=== PATIENT | female | born 1965 | race Caucasian/White ===

== ENCOUNTER → 2016-09-03 | Outpatient (REF) | payer OTHER ==
[~2016-09-03] MED LIST: ASPI81CH32 PO; ESCI20TA PO; LAMO100T PO; LEVO100T5 PO; SERO50TA PO; TOPA50TA7 PO; [UNRECOGNIZED DRUG - REMARK]; magnesium OR
== END ==
LOC: M SFHCADAM 13:35
PROVIDERS: ATTEND Physician Assistant Medical
DX: E03.9 Hypothyroidism, unspecified (principal); E55.9 Vitamin D deficiency, unspecified; M54.2 Cervicalgia

== ENCOUNTER → 2016-10-14 | Outpatient (REF) | payer OTHER | LOC: M LAB REF 12:11 | PROVIDERS: ATTEND Physician Assistant | DX: J03.90 Acute tonsillitis, unspecified (principal) ==

== ENCOUNTER → 2016-10-16 | Outpatient (REF) | payer OTHER ==
[2016-10-16 19:52] LABS: MICROSCOPIC INDICATED? MAN YES (NO)
[2016-10-16 22:15] LABS: SQUAMOUS EPITHELIAL CELL URINE SMALL AMOUNT /hpf (SMALL AMT); WBC, URINE 0-1 /hpf (0-3)
[2016-10-16 22:16] LABS: BACTERIA, URINE NONE SEEN; HYALINE CAST, URINE NONE SEEN /lpf (0-1); MICROSCOPIC EXAM PERFORMED
== END ==
LOC: M SFHCADAM 16:57
PROVIDERS: ATTEND Physician Assistant Medical
DX: R31.9 Hematuria, unspecified (principal); M54.5 Low back pain

== ENCOUNTER → 2016-10-22 | Outpatient (REF) | payer OTHER ==
[~2016-10-22] MED LIST changes: +BRIN1TAB2 PO; +MAGN200T PO
== END ==
LOC: M SMT 09:59
PROVIDERS: ATTEND Nurse Practitioner Women's Health
DX: R31.29 Other microscopic hematuria (principal)

== ENCOUNTER → 2016-10-27 | Outpatient (CLI) | payer OTHER ==
--- NOTE | 2016-10-27 10:29 | REP ---
Clinical: Abdominal pain. Technique: Real time balderas scale ultrasound examination using curved array transducer. Findings: Liver and pancreas are normal in contour, size, echogenicity without focal hepatic or pancreatic lesions identified. Gallbladder demonstrates cholelithiasis without wall thickening or pericholecystic fluid. No biliary ductal dilatation is appreciated and the common bile duct measures 6.7 mm diameter. The right kidney is normal in reniform shape without hydronephrosis and measures 10.7 x 5.3 x 4.0 cm. Visualized abdominal aorta is normal. No ascites. Impression: Cholelithiasis. No biliary ductal dilatation. Signed by hCuy Parry MD 10/27/2016 10:20 A
== END ==
LOC: M RAD 09:40
PROVIDERS: ATTEND Physician Assistant Medical
DX: K80.20 Calculus of gallbladder without cholecystitis without obstruction (principal)

== ENCOUNTER → 2016-10-29 | Outpatient (CLI) | payer OTHER ==
[~2016-10-29] MED LIST changes: +ISOVUE-370 76% 100ML VIAL (Q9967) As Ordered ONE
--- NOTE | 2016-10-29 16:35 | REP ---
Clinical: Hematuria. Technique: Axial precontrast, contrast enhanced, and delayed images of the abdomen and pelvis using 100 ml Isovue 370 intravenous contrast material coronal and sagittal re-formations. Findings: The bilateral kidneys/ureters and bladder appear normal in all phases of enhancement. Incidental note is made of few bilateral sub centimeter cysts. No nephrolithiasis, hydroureternephrosis, or mass lesion. Liver, spleen, pancreas, and bilateral adrenal glands are normal. Cholelithiasis noted. The enteric system is without obstruction or acute inflammatory process. Pelvis demonstrates normal bladder and evidence for prior hysterectomy. No pelvic fluid/ascites. No free air. No adenopathy. Vascular structures are without aneurysm or dissection. Musculoskeletal structures intact. Lung bases clear. Impression: 1. Urinary tract system is essentially unremarkable with only few bilateral subcentimeter cysts. 2. Cholelithiasis. 3. No further acute intra-abdominal or pelvic pathology appreciated. Signed by Chuy Parry MD 10/29/2016 04:26 P
== END ==
LOC: M RAD 15:20
PROVIDERS: ATTEND Nurse Practitioner Women's Health
DX: R31.9 Hematuria, unspecified (principal); K80.20 Calculus of gallbladder without cholecystitis without obstruction; N28.1 Cyst of kidney, acquired
CPT/HCPCS: 74178; Q9967

== ENCOUNTER → 2016-10-30 | Outpatient (CLI) | payer OTHER ==
[~2016-10-30] VITALS: Ht 157.5 cm; Wt 59.0 kg
[~2016-10-30] MED LIST changes: +GLYCOPYRROLATE INJ 0.2 MG/ML 2 ML VIAL As Ordered ONE; -ISOVUE-370 76% 100ML VIAL (Q9967) As Ordered ONE; +LIDOCAINE 2% INJ 100 MG/5 ML SDV (FOR ANES.) As Ordered ONE; +MIDAZOLAM INJ 2 MG/2 ML VIAL (J2250) As Ordered ONE; +NS 1,000 ML IV SCH; +ONDANSETRON 4MG/2ML VIAL (J2405) IV ONE; +PROPOFOL 200 MG/20 ML VIAL As Ordered ONE
--- NOTE | 2016-10-30 12:42 | ROOR ---
Patient Name: Klarissa Putnam Procedure Date: 10/30/2016 12:33 PM Date of : 1965 Age: 51 Room: [facility] Gender: Female Note Status: Finalized Procedure: Upper GI endoscopy Indications: Functional Dyspepsia, Heartburn Providers: Rudy CHURCH MD Referring MD: KELLY Gómez Requesting Provider: Medicines: Monitored Anesthesia Care Complications: No immediate complications. Procedure: Pre-Anesthesia Assessment: - The heart rate, respiratory rate, oxygen saturations, blood pressure, adequacy of pulmonary ventilation, and response to care were monitored throughout the procedure. The Endoscope was introduced through the mouth, and advanced to the second part of duodenum. The upper GI endoscopy was accomplished without difficulty. The patient tolerated the procedure well. Findings: Small Hiatal Hernia. The esophagus was normal. The stomach was normal. The examined duodenum was normal. Impression: - Small Hiatal Hernia. - Normal esophagus. - Normal stomach. - Normal examined duodenum. - No specimens collected. Recommendation: - Continue present medications. Rudy Church MD Rudy CHURCH MD 10/30/2016 12:42:20 PM This report has been signed electronically. Number of Addenda: 0 Note Initiated On: 10/30/2016 12:33 PM Estimated Blood Loss: Estimated blood loss: none.
--- NOTE | 2016-10-30 13:04 | ROOR ---
Patient Name: Klarissa Putnam Procedure Date: 10/30/2016 12:34 PM Date of : 1965 Age: 51 Room: [facility] Gender: Female Note Status: Finalized Procedure: Colonoscopy Indications: Change in bowel habits, Constipation Providers: Rudy CHURCH MD Referring MD: KELLY Gómez Requesting Provider: Medicines: Monitored Anesthesia Care Complications: No immediate complications. Procedure: Pre-Anesthesia Assessment: - The heart rate, respiratory rate, oxygen saturations, blood pressure, adequacy of pulmonary ventilation, and response to care were monitored throughout the procedure. The Colonoscope was introduced through the anus and advanced to the cecum, identified by appendiceal orifice and ileocecal valve. The colonoscopy was performed without difficulty. The patient tolerated the procedure well. The quality of the bowel preparation was poor. The bowel preparation used was Miralax and magnesium citrate. (Double Prep) Findings: (Colon Prep was Sub Optimal, Inadequate Visualisation) A 4 mm polyp was found in the cecum. The polyp was sessile. The polyp was removed with a cold snare. Resection and retrieval were complete. The exam was otherwise without abnormality on direct and retroflexion views. Impression: - Preparation of the colon was suboptimal/Inadequate. - One 4 mm polyp in the cecum, removed with a cold snare. Resected and retrieved. - The examination was otherwise without major lesions, polyps or obstruction on direct and retroflexion views. Recommendation: - Repeat colonoscopy in 1 year because the bowel preparation was suboptimal. - Miralax 1 capful (17 grams) in 8 ounces of water PO BID. Rudy Church MD Rudy CHURCH MD 10/30/2016 1:03:44 PM This report has been signed electronically. Number of Addenda: 0 Note Initiated On: 10/30/2016 12:34 PM Estimated Blood Loss: Estimated blood loss: none.
[2016-10-30 13:26] VITALS: BP 108/58
== END ==
LOC: M OPP 10:29
PROVIDERS: ATTEND Internal Medicine Gastroenterology
DX: R19.4 Change in bowel habit (principal); D12.0 Benign neoplasm of cecum; K30 Functional dyspepsia; K44.9 Diaphragmatic hernia without obstruction or gangrene; E03.9 Hypothyroidism, unspecified; K82.9 Disease of gallbladder, unspecified; F32.9 Major depressive disorder, single episode, unspecified; M54.9 Dorsalgia, unspecified; Z87.42 Personal history of other diseases of the female genital tract; Z87.891 Personal history of nicotine dependence; Z79.899 Other long term (current) drug therapy; Z80.3 Family history of malignant neoplasm of breast
CPT/HCPCS: 43235; 45385; 88305; 99156; 99157; J2250; J2405

== ENCOUNTER → 2016-12-07 | Outpatient (CLI) | payer OTHER ==
[~2016-12-07] MED LIST changes: -GLYCOPYRROLATE INJ 0.2 MG/ML 2 ML VIAL As Ordered ONE; -LIDOCAINE 2% INJ 100 MG/5 ML SDV (FOR ANES.) As Ordered ONE; -MIDAZOLAM INJ 2 MG/2 ML VIAL (J2250) As Ordered ONE; -NS 1,000 ML IV SCH; -ONDANSETRON 4MG/2ML VIAL (J2405) IV ONE; -PROPOFOL 200 MG/20 ML VIAL As Ordered ONE
--- NOTE | 2016-12-07 22:56 | ECGEPIP ---
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 NO SIGNIFICANT CHANGES Electronically Signed On 12-07-2016 22:56:41 EDT by Luis Mitchell
== END ==
LOC: M EKG 11:08
PROVIDERS: ATTEND Internal Medicine
DX: Z01.818 Encounter for other preprocedural examination (principal); E04.1 Nontoxic single thyroid nodule

== ENCOUNTER → 2016-12-08 | Day surgery (SDC) | payer OTHER ==
[~2016-12-08] VITALS: Ht 160 cm; Wt 59.4 kg
[~2016-12-08] MED LIST changes: +BUPIVACAINE/EPIN 0.25% 30 ML VIAL As Ordered ONE; +GLYCOPYRROLATE INJ 0.2 MG/ML 2 ML VIAL As Ordered ONE; +KETOROLAC 60 MG/2 ML VIAL (J1885) As Ordered ONE; +LIDOCAINE 2% INJ 100 MG/5 ML SDV (FOR ANES.) As Ordered ONE; +LR 1,000 ML IV SCH; +METOCLOPRAMIDE INJ 10MG/2ML VIAL (J2765) IV PRN; +MIDAZOLAM INJ 2 MG/2 ML VIAL (J2250) As Ordered ONE; +NEOSTIGMINE 1MG/ML 5 ML SYRINGE (J2710) As Ordered ONE; +ONDANSETRON 4MG/2ML VIAL (J2405) As Ordered ONE; +ONDANSETRON 4MG/2ML VIAL (J2405) IV PRN; +PERCOCET 5MG/325MG TAB As Ordered ONE; +PROPOFOL 200 MG/20 ML VIAL As Ordered ONE; +ROCURONIUM BROMIDE 50 MG/5 ML VIAL As Ordered ONE; +dexameTHASONE 4 MG/ML 1ML VIAL (J1100) As Ordered ONE; +ePHEDrine SULFATE 25 MG/5 ML(5MG/ML) SYRINGE As Ordered ONE; +fentaNYL 100 MCG/2 ML INJECTION (J3010) IV PRN; +fentaNYL 250 MCG/5 ML INJECTION (J3010) As Ordered ONE
[2016-12-08] MEDS: PERCOCET 5MG/325MG TAB PO PRN ×2 (10:35→11:10)
--- NOTE | 2016-12-08 10:39 | RO ---
DATE OF PROCEDURE: 12/08/2016 PREOPERATIVE DIAGNOSES: 1. Symptomatic gallstones. 2. Left upper quadrant pain. POSTOPERATIVE DIAGNOSES: 1. Symptomatic gallstones. 2. Left upper quadrant adhesions. PROCEDURE: 1. Laparoscopic cholecystectomy. 2. Laparoscopic lysis of adhesions. 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 ESTIMATED BLOOD LOSS (EBL): Minimal. FLUIDS: Crystalloid. DESCRIPTION OF PROCEDURE: Brief procedure summary: The patient was brought to the operating room and was given general anesthesia. After adequate anesthesia was established, the patient was prepped and draped in the usual sterile fashion. Next, an infraumbilical incision was made with skin knife. Blunt dissection was carried down to fascia. Fascia was grasped Keyanna clamps, elevated, and a Veress needle placed into the abdominal cavity, insufflated to 15 mm of pressure. A dilating 10 mm trocar was placed at that time, and the epigastric area was evaluated, and the epigastric and two lateral trocars were placed under direct visualization. The gallbladder was grasped, retracted superiorly, and the neck of the gallbladder was cleared of peritoneum and some fatty tissue down to the level of the cystic duct on the lateral aspect; and then anteriorly and medially, the peritoneum was taken down. The cystic artery was well visualized. It was followed up to the gallbladder wall and onto the gallbladder wall for some distance. Once this was identified, a window behind the neck of the gallbladder was created, and dissection continued all the way up to the cystic plate; and once the cystic plate was identified and a critical view of safety was obtained and the cystic duct was clipped at the cystic duct/gallbladder neck junction and the cystic artery was clipped, both were transected, and the gallbladder was removed from removed from the gallbladder bed using electrocautery. This was placed in an EndoCatch bag, brought out through the umbilicus. The abdomen was reinsufflated at this time, and the right upper quadrant was copiously irrigated until clear. There was some minimal scarring in the liver edges itself but no significant cirrhosis appreciated. No adhesions on the liver. The left lobe of the liver was somewhat enlarged, but no evidence of cirrhotic changes were appreciated. Then, the patient was placed in the right-side down, given that she had some left upper quadrant, left lateral abdominal wall pain. Initially, with the patient in the supine position, I did not see any significant adhesions but, however, tilting her to the right, I was able to see some adhesions of the omentum up against the sidewall. There was no mass effect, no lesion that I could appreciate; however, there were multiple adhesions that I took down with electrocautery and some blunt dissection all the way to the level of the white line of Toldt laterally. The spleen was visualized and did not reveal any significant adhesions in this area. Once these adhesions were taken down, all trocars were removed under direct visualization. 0 Vicryl was used to close the fascia at the umbilicus, and all incisions were closed with 4-0 Vicryl. Steri-Strips and a dry sterile dressing was applied. The patient was awakened from her anesthesia, extubated, brought to recovery room awake, alert, and hemodynamically stable. Sponge and needle counts correct times two.
[2016-12-08] MEDS: MIDAZOLAM INJ 2 MG/2 ML VIAL (J2250) IV SCH ×2 (10:45→11:00)
[2016-12-08 12:05] VITALS: BP 116/53
== END | disposition home or self-care (01) ==
LOC: M SDC 07:42
PROVIDERS: ATTEND Surgery
DX: K80.18 Calculus of gallbladder with other cholecystitis without obstruction (principal); N73.6 Female pelvic peritoneal adhesions (postinfective); E03.9 Hypothyroidism, unspecified; D64.9 Anemia, unspecified; F41.9 Anxiety disorder, unspecified; F32.9 Major depressive disorder, single episode, unspecified; F17.210 Nicotine dependence, cigarettes, uncomplicated; Z79.899 Other long term (current) drug therapy
CPT/HCPCS: 47562; 88304; J1100; J1885; J2250; J2405; J2710; J3010

== ENCOUNTER 2016-12-23 14:13 | Emergency (ER) | payer OTHER ==
[~2016-12-23] VITALS: Ht 157.5 cm; Wt 60.8 kg
[~2016-12-23 14:13] MED LIST changes: -BUPIVACAINE/EPIN 0.25% 30 ML VIAL As Ordered ONE; -GLYCOPYRROLATE INJ 0.2 MG/ML 2 ML VIAL As Ordered ONE; -KETOROLAC 60 MG/2 ML VIAL (J1885) As Ordered ONE; -LIDOCAINE 2% INJ 100 MG/5 ML SDV (FOR ANES.) As Ordered ONE; -LR 1,000 ML IV SCH; -METOCLOPRAMIDE INJ 10MG/2ML VIAL (J2765) IV PRN; -MIDAZOLAM INJ 2 MG/2 ML VIAL (J2250) As Ordered ONE; -NEOSTIGMINE 1MG/ML 5 ML SYRINGE (J2710) As Ordered ONE; -ONDANSETRON 4MG/2ML VIAL (J2405) As Ordered ONE; -ONDANSETRON 4MG/2ML VIAL (J2405) IV PRN; -PERCOCET 5MG/325MG TAB As Ordered ONE; -PROPOFOL 200 MG/20 ML VIAL As Ordered ONE; -ROCURONIUM BROMIDE 50 MG/5 ML VIAL As Ordered ONE; -dexameTHASONE 4 MG/ML 1ML VIAL (J1100) As Ordered ONE; -ePHEDrine SULFATE 25 MG/5 ML(5MG/ML) SYRINGE As Ordered ONE; -fentaNYL 100 MCG/2 ML INJECTION (J3010) IV PRN; -fentaNYL 250 MCG/5 ML INJECTION (J3010) As Ordered ONE
[2016-12-23 14:14] VITALS: BP 142/95
[2016-12-23] MEDS ORDERED: KETOROLAC 60 MG/2 ML VIAL (J1885) IM ONE (15:00)
--- NOTE | 2016-12-23 15:25 | REP ---
Clinical: Trauma with pain to the second - fourth digits. Technique: AP, lateral, bilateral oblique views of the left hand. Comparison: 05/12/2014. Findings: Congenital shortening and degenerative changes involving the fifth metacarpal bone are again identified. Mild arthritic changes to the interphalangeal joints include subchondral sclerosis and joint space narrowing. Remainder of the examination appears relatively normal / stable. No acute fracture or dislocation identified. No subcutaneous emphysema or radiodense foreign body. Impression: Stable chronic findings and degenerative changes. No acute fracture dislocation. Signed by Chuy Parry MD 12/23/2016 03:16 P
[2016-12-23] MEDS ORDERED: NORC1TAB4 PO (15:31)
== END 2016-12-23 15:45 | disposition home or self-care (01) ==
LOC: M ED 14:52
DX: S60.022A Contusion of left index finger without damage to nail, initial encounter (principal); S60.032A Contusion of left middle finger without damage to nail, initial encounter; S60.042A Contusion of left ring finger without damage to nail, initial encounter; W23.0XXA Caught, crushed, jammed, or pinched between moving objects, initial encounter; Y92.019 Unspecified place in single-family (private) house as the place of occurrence of the external cause; Y93.E9 Activity, other interior property and clothing maintenance; Y99.9 Unspecified external cause status; F41.9 Anxiety disorder, unspecified; F32.9 Major depressive disorder, single episode, unspecified; F17.200 Nicotine dependence, unspecified, uncomplicated; Z79.899 Other long term (current) drug therapy

== ENCOUNTER → 2016-12-31 | Outpatient (CLI) | payer OTHER ==
[~2016-12-31] MED LIST changes: +NORC1TAB4 PO
--- NOTE | 2016-12-31 12:06 | REP ---
Clinical: Acute left-sided pain. Technique: AP, lateral, bilateral oblique and coned-down views of the lumbosacral spine. Findings: Alignment and lordosis maintained. Chronic spondylolysis at the L5-S1 level with hypertrophic facet changes and mild disc space narrowing is suspected and may warrant correlation. There is no evidence for acute fracture / compression injury or subluxation and the remainder of the lumbosacral spine appears normal. Impression: Chronic spondylolysis at the L5-S1 level suggested. Signed by Chuy Parry MD 12/31/2016 11:57 A
== END ==
LOC: M ADAMS 11:30
PROVIDERS: ATTEND Physician Assistant Medical
DX: M54.5 Low back pain (principal)

== ENCOUNTER → 2016-12-31 | Outpatient (REF) | payer OTHER ==
[2016-12-31 21:14] LABS: BASO % 0.6 % (0.0-1.0); EOS # 0.3 K/mm3 (0.0-0.50); EOS % 4.5 % (0.0-3.0); LARGE UNSTAINED CELL # 0.1 K/mm3 (0.0-0.4); LARGE UNSTAINED CELL % 1.3 % (0.0-4.0); LYMPH # 1.6 K/mm3 (1.5-4.5); MEAN CORPUSCULAR HEMOGLOBIN 31.8 pg (27.0-33.0); MEAN CORPUSCULAR HGB CONC 34.7 g/dl (32.0-36.5); MEAN CORPUSCULAR VOLUME 91.7 fl (80.0-96.0); MONO # 0.3 K/mm3 (0.0-0.8); MONO % 4.6 % (0.0-5.0); NEUTROPHILS # 4.7 K/mm3 (1.8-7.7); PLATELET COUNT, AUTOMATED 221 k/mm3 (150-450); RED CELL DISTRIBUTION WIDTH 12.4 % (11.5-14.5)
[2016-12-31 21:37] LABS: ALBUMIN 4.1 GM/DL (3.2-5.2); ALBUMIN/GLOBULIN RATIO 1.28 (1.00-1.93); ALKALINE PHOSPHATASE 68 U/L (45-117); ALT/SGPT 19 U/L (12-78); ANION GAP 7 MEQ/L (8-16); AST/SGOT 11 U/L (15-37); BILIRUBIN,TOTAL 0.5 MG/DL (0.2-1.0); BLOOD UREA NITROGEN 27 MG/DL (7-18); CALCIUM LEVEL 9.8 MG/DL (8.5-10.1); CARBON DIOXIDE LEVEL 28 MEQ/L (21-32); CHLORIDE LEVEL 108 MEQ/L (98-107); CREATININE FOR GFR 0.89 MG/DL (0.55-1.02); GLOMERULAR FILTRATION RATE > 60.0 (>51); GLUCOSE, FASTING 77 MG/DL (70-105); POTASSIUM SERUM 4.2 MEQ/L (3.5-5.1); SODIUM LEVEL 143 MEQ/L (136-145); TOTAL PROTEIN 7.3 GM/DL (6.4-8.2)
== END ==
LOC: M SFHCADAM 11:24
PROVIDERS: ATTEND Physician Assistant Medical
DX: R10.12 Left upper quadrant pain (principal); M54.5 Low back pain

== ENCOUNTER → 2016-12-31 | Outpatient (REF) | payer OTHER ==
[2017-01-01 10:38] LABS: ALKALINE PHOSPHATASE 70 U/L (45-117); ALT/SGPT 19 U/L (12-78); ANION GAP 8 MEQ/L (8-16); AST/SGOT 11 U/L (15-37); BLOOD UREA NITROGEN 26 MG/DL (7-18); CALCIUM LEVEL 9.7 MG/DL (8.5-10.1); CARBON DIOXIDE LEVEL 26 MEQ/L (21-32); CHLORIDE LEVEL 109 MEQ/L (98-107); GLOMERULAR FILTRATION RATE > 60.0 (>51); GLUCOSE, FASTING 79 MG/DL (70-105); POTASSIUM SERUM 4.2 MEQ/L (3.5-5.1); SODIUM LEVEL 143 MEQ/L (136-145)
[2017-01-01 10:39] LABS: ALBUMIN/GLOBULIN RATIO 1.25 (1.00-1.93); BILIRUBIN,TOTAL 0.6 MG/DL (0.2-1.0); THYROXINE (T4) 10.7 UG/DL (4.5-12.0); TOTAL PROTEIN 7.2 GM/DL (6.4-8.2)
[2017-01-01 10:44] LABS: MEAN CORPUSCULAR HEMOGLOBIN 31.5 pg (27.0-33.0); MEAN CORPUSCULAR HGB CONC 34.2 g/dl (32.0-36.5); RED CELL DISTRIBUTION WIDTH 12.6 % (11.5-14.5)
== END ==
LOC: M LABDRWAD 10:19
PROVIDERS: ATTEND Nurse Practitioner Psychiatric/Mental Health
DX: F32.9 Major depressive disorder, single episode, unspecified (principal)

== ENCOUNTER → 2017-03-15 | Outpatient (CLI) | payer OTHER ==
[~2017-03-15] MED LIST changes: +MAGN1TAB25 PO; +TIZA2TA; -TOPA50TA7 PO; +TOPA50TA8 PO; +VITA1CAP40
--- NOTE | 2017-03-15 17:04 | REP ---
Right foot four views: There is osteoarthritis of the great toe MTP articulation. There is question of a fracture at the base of the great toe proximal phalange. No other fracture is identified. Mineralization joint spaces are otherwise unremarkable. Impression: Question fracture at the base of the great toe proximal phalange. Great toe MTP osteoarthritis. Signed by Franklin Redd MD 03/15/2017 04:56 P
== END ==
LOC: M ADAMS 16:34
PROVIDERS: ATTEND Physician Assistant Medical
DX: M79.671 Pain in right foot (principal)

== ENCOUNTER → 2017-03-19 | Outpatient (REF) | payer OTHER | LOC: M LAB REF 12:26 | PROVIDERS: ATTEND Ophthalmology | DX: D23.12 Other benign neoplasm of skin of left eyelid, including canthus (principal) ==

== ENCOUNTER → 2017-03-23 | Outpatient (CLI) | payer OTHER ==
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
== END ==
LOC: M PAIN 15:30
PROVIDERS: ATTEND Anesthesiology
DX: G89.29 Other chronic pain (principal); M79.2 Neuralgia and neuritis, unspecified; R07.81 Pleurodynia; M79.1 Myalgia; F33.1 Major depressive disorder, recurrent, moderate; E03.9 Hypothyroidism, unspecified; F17.210 Nicotine dependence, cigarettes, uncomplicated; E55.9 Vitamin D deficiency, unspecified; Z79.1 Long term (current) use of non-steroidal anti-inflammatories (NSAID); Z79.899 Other long term (current) drug therapy

== ENCOUNTER → 2017-04-22 | Outpatient (CLI) | payer OTHER ==
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
== END ==
LOC: M PAIN 11:30
PROVIDERS: ATTEND Nurse Practitioner Family
DX: G89.29 Other chronic pain (principal); M79.2 Neuralgia and neuritis, unspecified; M79.1 Myalgia; M54.5 Low back pain; F31.9 Bipolar disorder, unspecified; E03.9 Hypothyroidism, unspecified; F17.210 Nicotine dependence, cigarettes, uncomplicated; E55.9 Vitamin D deficiency, unspecified; M13.0 Polyarthritis, unspecified; Z79.1 Long term (current) use of non-steroidal anti-inflammatories (NSAID); Z79.899 Other long term (current) drug therapy

== ENCOUNTER → 2017-04-23 | Outpatient (REF) | payer OTHER ==
[2017-04-23 13:42] LABS: FREE T4 1.2 NG/DL (0.76-1.46)
== END ==
LOC: M SFHCADAM 09:52
PROVIDERS: ATTEND Physician Assistant Medical
DX: E03.9 Hypothyroidism, unspecified (principal)

== ENCOUNTER 2017-04-26 17:05 | Emergency (ER) | payer OTHER ==
[~2017-04-26] VITALS: Ht 160 cm; Wt 61.8 kg
[~2017-04-26 17:05] MED LIST changes: -MAGN1TAB25 PO; -TIZA2TA; -VITA1CAP40
[2017-04-26] MEDS ORDERED: TIZA2TA (17:23)
[2017-04-26] MEDS ORDERED: MAGN1TAB25 PO (17:23)
[2017-04-26] MEDS ORDERED: VITA1CAP40 (17:23)
--- NOTE | 2017-04-26 19:12 | REP ---
Portable chest x-ray: Single upright view. History: Chest pain. Comparison chest x-ray: October 17, 2016. Findings: EKG monitoring electrodes overlie the chest. The lungs are well inflated and clear. Heart is not enlarged. Pulmonary vasculature is not increased. Pleural angles are sharp. Impression: No active disease. Signed by Brijesh Lee MD 04/26/2017 08:03 P
[2017-04-26 20:04] LABS: BASO % 0.6 % (0.0-1.0); EOS # 0.2 K/mm3 (0.0-0.50); EOS % 2.3 % (0.0-3.0); LARGE UNSTAINED CELL # 0.1 K/mm3 (0.0-0.4); LARGE UNSTAINED CELL % 1.8 % (0.0-4.0); LYMPH # 1.8 K/mm3 (1.5-4.5); LYMPH % 26.4 % (24.0-44.0); MEAN CORPUSCULAR HEMOGLOBIN 32.6 pg (27.0-33.0); MEAN CORPUSCULAR HGB CONC 36.5 g/dl (32.0-36.5); MEAN CORPUSCULAR VOLUME 89.4 fl (80.0-96.0); MONO # 0.4 K/mm3 (0.0-0.8); MONO % 5.5 % (0.0-5.0); NEUTROPHILS # 4.3 K/mm3 (1.8-7.7); NEUTROPHILS % 63.4 % (36.0-66.0); PLATELET COUNT, AUTOMATED 185 k/mm3 (150-450); RED CELL DISTRIBUTION WIDTH 12.3 % (11.5-14.5); WHITE BLOOD COUNT 6.8 K/mm3 (4.0-10.0)
[2017-04-26 20:09] LABS: INR 0.94
--- NOTE | 2017-04-26 20:09 | ECGEPIP ---
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
[2017-04-26 20:27] LABS: ALBUMIN 3.6 GM/DL (3.2-5.2); ALBUMIN/GLOBULIN RATIO 1.13 (1.00-1.93); ALT/SGPT 21 U/L (12-78); ANION GAP 6 MEQ/L (8-16); AST/SGOT 22 U/L (15-37); BILIRUBIN,DIRECT 0.1 MG/DL (0.0-0.2); BILIRUBIN,TOTAL 0.5 MG/DL (0.2-1.0); BLOOD UREA NITROGEN 18 MG/DL (7-18); CALCIUM LEVEL 9.1 MG/DL (8.5-10.1); CARBON DIOXIDE LEVEL 25 MEQ/L (21-32); CHLORIDE LEVEL 110 MEQ/L (98-107); CREATININE FOR GFR 0.87 MG/DL (0.55-1.02); FREE T4 1.11 NG/DL (0.76-1.46); GLOMERULAR FILTRATION RATE > 60.0 (>51); GLUCOSE, FASTING 88 MG/DL (70-105); POTASSIUM SERUM 3.6 MEQ/L (3.5-5.1); SODIUM LEVEL 141 MEQ/L (136-145); TOTAL PROTEIN 6.8 GM/DL (6.4-8.2)
[2017-04-26 20:32] LABS: ALKALINE PHOSPHATASE 65 U/L (45-117)
[2017-04-26 21:03] LABS: ABG BASE EXCESS -2.6 (-2.0-2.0); ABG HCO3 20.8 MEQ/L (22.0-26.0); ABG PARTIAL PRESSURE CO2 32.3 mmHg (35.0-45.0); ABG PARTIAL PRESSURE O2 96.2 mmHg (75.0-100.0); ABG STANDARD HCO3 22.3 MEQ/L (22.0-26.0); ABG TOTAL CO2 21.8 MEQ/L (22.0-29.0); ABG pH (ARTERIAL) 7.427 UNITS (7.350-7.450)
[2017-04-26 22:43] VITALS: BP 124/67
== END 2017-04-26 22:47 | disposition home or self-care (01) ==
LOC: M ED 17:05
DX: R06.4 Hyperventilation (principal); F41.9 Anxiety disorder, unspecified; Z72.0 Tobacco use

== ENCOUNTER → 2017-04-28 | Outpatient (REF) | payer OTHER ==
[~2017-04-28] MED LIST changes: +MAGN1TAB25 PO; +TIZA2TA; +VITA1CAP40
[2017-04-28 20:28] LABS: VITAMIN B12 LEVEL 443 PG/ML
[2017-04-28 20:29] LABS: FOLATE 7.6 NG/ML
[2017-04-28 20:39] LABS: MAGNESIUM LEVEL 2.2 MG/DL (1.8-2.4)
== END ==
LOC: M SFHCADAM 12:13
PROVIDERS: ATTEND Physician Assistant
DX: G62.9 Polyneuropathy, unspecified (principal); M79.1 Myalgia; M25.40 Effusion, unspecified joint

== ENCOUNTER → 2017-05-04 | Outpatient (CLI) | payer OTHER ==
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
== END ==
LOC: M PAIN 14:15
PROVIDERS: ATTEND Nurse Practitioner Family
DX: G89.29 Other chronic pain (principal); M79.2 Neuralgia and neuritis, unspecified; M79.1 Myalgia; M54.5 Low back pain; F33.1 Major depressive disorder, recurrent, moderate; E03.9 Hypothyroidism, unspecified; F17.210 Nicotine dependence, cigarettes, uncomplicated; E55.9 Vitamin D deficiency, unspecified; Z79.1 Long term (current) use of non-steroidal anti-inflammatories (NSAID); Z79.899 Other long term (current) drug therapy

== ENCOUNTER → 2017-05-08 | Outpatient (CLI) | payer OTHER | LOC: M ADAMS 12:34 | PROVIDERS: ATTEND Nurse Practitioner Family | DX: M79.2 Neuralgia and neuritis, unspecified (principal); Z53.9 Procedure and treatment not carried out, unspecified reason ==

== ENCOUNTER → 2017-05-10 | Outpatient (REF) | payer OTHER | LOC: M SMT 16:47 | PROVIDERS: ATTEND Urology | DX: R31.9 Hematuria, unspecified (principal) ==

== ENCOUNTER → 2017-05-10 | Outpatient (CLI) | payer OTHER ==
--- NOTE | 2017-05-10 15:20 | REP ---
CERVICAL SPINE, SEVEN VIEWS: HISTORY: Neuralgia. There is no acute fracture. The C4-5 through C6-7 intervertebral discs are decreased in height consistent with disc degeneration. Osteophytes are present on C5 and 6. There is narrowing of the C4 and 5 neural foramina secondary to uncinate process hypertrophy. There are 2 mm of retrolisthesis of C3 on 4 with extension. The is not seen in neutral or flexion radiographs. IMPRESSION: Degenerative change as described above. THORACIC SPINE, FOUR VIEWS: HISTORY: Neuralgia. There is no acute fracture or subluxation. There is loss of height of a several mid and lower thoracic intervertebral discs. Anterior osteophytes are present in the mid thoracic spine. IMPRESSION: Degenerative change as described above. Signed by Jamel Palacios MD 05/10/2017 03:23 P
== END ==
LOC: M ADAMS 14:12
PROVIDERS: ATTEND Nurse Practitioner Family
DX: M79.2 Neuralgia and neuritis, unspecified (principal)

== ENCOUNTER → 2017-05-18 | Outpatient (CLI) | payer OTHER ==
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
== END ==
LOC: M PAIN 14:00
PROVIDERS: ATTEND Nurse Practitioner Family
DX: G89.29 Other chronic pain (principal); M79.2 Neuralgia and neuritis, unspecified; M54.5 Low back pain; M79.1 Myalgia; F33.1 Major depressive disorder, recurrent, moderate; E03.9 Hypothyroidism, unspecified; F17.210 Nicotine dependence, cigarettes, uncomplicated; E55.9 Vitamin D deficiency, unspecified; Z79.899 Other long term (current) drug therapy

== ENCOUNTER → 2017-06-01 | Outpatient (CLI) | payer OTHER ==
[~2017-06-01] MED LIST changes: +ISOVUE-370 76% 100ML VIAL (Q9967) As Ordered ONE
--- NOTE | 2017-06-01 11:38 | REP ---
CT abdomen pelvis without IV contrast and with biphasic scanning after IV contrast during the arterial phase and later during the delayed equilibrium phase. There are no renal or ureteral or bladder calculi. There is no hydronephrosis. There are no renal masses. There is a 9 mm right renal cyst at the mid pole laterally. There is no perinephric stranding. The visualized lung rowland are unremarkable. The hepatic parenchyma is homogeneous. There are surgical clips in the gallbladder fossa as an interval change. The pancreas and spleen are normal size and unremarkable. The adrenals are unremarkable. The abdominal aorta, bowel and mesentery are unremarkable. Pelvis: No bladder masses or calculi are identified. There is a hysterectomy. Vaginal cuff and adnexa are unremarkable. There is no adenopathy or ascites. The pelvic bowel loops are unremarkable. Impression: There are no renal, ureteral or bladder calculi. There are no renal or bladder masses. There is no hydronephrosis. No perinephric stranding. There is a cholecystectomy and hysterectomy. Otherwise, negative CT of the abdomen and pelvis. Signed by Franklin Redd MD 06/01/2017 11:29 A
== END ==
LOC: M RAD 09:37
PROVIDERS: ATTEND Urology
DX: R31.9 Hematuria, unspecified (principal)
CPT/HCPCS: 74178; Q9967

== ENCOUNTER → 2017-06-01 | Outpatient (CLI) | payer OTHER ==
[~2017-06-01] MED LIST changes: +BUPIVACAINE HCL 0.25% 10 ML VIAL As Ordered ONE; +BUPIVACAINE HCL 0.25% 30 ML VIAL As Ordered ONE; -ISOVUE-370 76% 100ML VIAL (Q9967) As Ordered ONE; +TRIAMCINOLONE ACETONIDE SUSP 40 MG/ML VIAL (J3301) As Ordered ONE; +diazePAM 5 MG TAB As Ordered ONE; +diphenhydrAMINE 25 MG CAP As Ordered ONE; +oxyCODONE 5MG TAB As Ordered ONE
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
== END ==
LOC: M PAIN 13:45
PROVIDERS: ATTEND Anesthesiology
DX: G89.29 Other chronic pain (principal); M54.2 Cervicalgia; M25.512 Pain in left shoulder; M54.5 Low back pain; M79.1 Myalgia; F33.1 Major depressive disorder, recurrent, moderate; E03.9 Hypothyroidism, unspecified; F17.210 Nicotine dependence, cigarettes, uncomplicated; E55.9 Vitamin D deficiency, unspecified; M13.0 Polyarthritis, unspecified; Z79.899 Other long term (current) drug therapy
CPT/HCPCS: 20553; J3301

== ENCOUNTER → 2017-09-23 | Outpatient (CLI) | payer OTHER | LOC: M PAIN 10:00 | DX: G89.29 Other chronic pain (principal); M50.222 Other cervical disc displacement at C5-C6 level; M79.2 Neuralgia and neuritis, unspecified; M79.1 Myalgia; M54.5 Low back pain; I83.90 Asymptomatic varicose veins of unspecified lower extremity; E05.00 Thyrotoxicosis with diffuse goiter without thyrotoxic crisis or storm; F32.9 Major depressive disorder, single episode, unspecified; E55.9 Vitamin D deficiency, unspecified; E03.9 Hypothyroidism, unspecified; K59.00 Constipation, unspecified; Z87.891 Personal history of nicotine dependence; Z79.899 Other long term (current) drug therapy | CPT/HCPCS: G0463 ==

== ENCOUNTER → 2017-10-26 | Outpatient (REF) | payer OTHER ==
[2017-10-26 19:53] LABS: HEMATOCRIT 40.5 % (36.0-47.0); HEMOGLOBIN 13.5 g/dl (12.0-16.0); MEAN CORPUSCULAR HEMOGLOBIN 30.4 pg (27.0-33.0); MEAN CORPUSCULAR HGB CONC 33.3 g/dl (32.0-36.5); MEAN CORPUSCULAR VOLUME 91.2 fl (80.0-96.0); PLATELET COUNT, AUTOMATED 190 10^3/uL (150-450); RED BLOOD COUNT 4.44 10^6/uL (4.00-5.40); RED CELL DISTRIBUTION WIDTH 12.3 % (11.5-14.5); WHITE BLOOD COUNT 8.2 10^3/uL (4.0-10.0)
[2017-10-26 20:39] LABS: ALBUMIN 4.2 GM/DL (3.2-5.2); ALBUMIN/GLOBULIN RATIO 1.35 (1.00-1.93); ALKALINE PHOSPHATASE 59 U/L (45-117); ALT/SGPT 17 U/L (12-78); ANION GAP 7 MEQ/L (8-16); AST/SGOT 12 U/L (7-37); BILIRUBIN,TOTAL 0.4 MG/DL (0.2-1.0); BLOOD UREA NITROGEN 28 MG/DL (7-18); CALCIUM LEVEL 8.9 MG/DL (8.5-10.1); CARBON DIOXIDE LEVEL 25 MEQ/L (21-32); CHLORIDE LEVEL 109 MEQ/L (98-107); CREATININE FOR GFR 0.94 MG/DL (0.55-1.30); FREE T4 0.98 NG/DL (0.76-1.46); GLOMERULAR FILTRATION RATE > 60.0 (>51); GLUCOSE, FASTING 92 MG/DL (70-100); POTASSIUM SERUM 4.3 MEQ/L (3.5-5.1); SODIUM LEVEL 141 MEQ/L (136-145); TOTAL PROTEIN 7.3 GM/DL (6.4-8.2)
== END ==
LOC: M SFHCADAM 14:54
DX: K59.00 Constipation, unspecified (principal); R10.84 Generalized abdominal pain

== ENCOUNTER → 2017-11-05 | Outpatient (CLI) | payer OTHER ==
[~2017-11-05] MED LIST changes: -ASPI81CH32 PO; -BRIN1TAB2 PO; -BUPIVACAINE HCL 0.25% 10 ML VIAL As Ordered ONE; -BUPIVACAINE HCL 0.25% 30 ML VIAL As Ordered ONE; -ESCI20TA PO; +GASTROGRAFIN SOLUTION 30ML (Q9963) As Ordered; +ISOVUE-370 76% 100ML VIAL (Q9967) As Ordered; -LAMO100T PO; -LEVO100T5 PO; -MAGN1TAB25 PO; -MAGN200T PO; -NORC1TAB4 PO; -SERO50TA PO; -TIZA2TA; -TOPA50TA8 PO; -TRIAMCINOLONE ACETONIDE SUSP 40 MG/ML VIAL (J3301) As Ordered ONE; -VITA1CAP40; -[UNRECOGNIZED DRUG - REMARK]; -diazePAM 5 MG TAB As Ordered ONE; -diphenhydrAMINE 25 MG CAP As Ordered ONE; -magnesium OR; -oxyCODONE 5MG TAB As Ordered ONE
== END ==
LOC: M RAD 13:55
DX: R10.84 Generalized abdominal pain (principal)
CPT/HCPCS: Q9963

== ENCOUNTER → 2017-12-01 | Outpatient (REF) | payer OTHER ==
[2017-12-02 13:57] LABS: AMORPHOUS SEDIMENT SMALL (NEGATIVE); APPEARANCE, URINE CLOUDY (CLEAR); BACTERIA, URINE AUTO NEGATIVE (NEGATIVE); BILIRUBIN, URINE AUTO NEGATIVE (NEGATIVE); BLOOD, URINE BLOOD NEGATIVE (NEGATIVE); COLOR, URINE YELLOW (YELLOW); GLUCOSE, URINE (UA) AUTO NEGATIVE (NEGATIVE); KETONE, URINE AUTO NEGATIVE (NEGATIVE); LEUKOCYTE ESTERASE, URINE AUTO NEGATIVE (NEGATIVE); NITRITE, URINE AUTO NEGATIVE (NEGATIVE); PROTEIN, URINE AUTO NEGATIVE (NEGATIVE); RBC, URINE AUTO 3 /HPF (0-3); SPECIFIC GRAVITY URINE AUTO 1.017 (1.002-1.035); SQUAMOUS EPITHELIAL CELL UR AU 0 /HPF (0-6); UROBILINOGEN, URINE AUTO 0.2 mg/dL (0.0-2.0); WBC, URINE AUTO 1 /HPF (0-3)
== END ==
LOC: M SMT 12-02 13:24
DX: R31.9 Hematuria, unspecified (principal)

== ENCOUNTER → 2018-03-01 | Outpatient (REF) | payer OTHER ==
[2018-03-01 19:49] LABS: FOLATE 8.5 NG/ML; TOTAL 25(OH) VITAMIN D 62.6 NG/ML (30.0-100.0); VITAMIN B12 LEVEL 419 PG/ML
[2018-03-01 19:50] LABS: ALBUMIN 3.7 GM/DL (3.2-5.2); ALBUMIN/GLOBULIN RATIO 1.12 (1.00-1.93); ALKALINE PHOSPHATASE 70 U/L (45-117); ALT/SGPT 19 U/L (12-78); ANION GAP 6 MEQ/L (8-16); AST/SGOT 14 U/L (7-37); BILIRUBIN,TOTAL 0.3 MG/DL (0.2-1.0); BLOOD UREA NITROGEN 19 MG/DL (7-18); CALCIUM LEVEL 8.6 MG/DL (8.5-10.1); CARBON DIOXIDE LEVEL 26 MEQ/L (21-32); CHLORIDE LEVEL 113 MEQ/L (98-107); CREATININE FOR GFR 0.96 MG/DL (0.55-1.30); GLOMERULAR FILTRATION RATE > 60.0 (>51); GLUCOSE, FASTING 84 MG/DL (70-100); MAGNESIUM LEVEL 2.4 MG/DL (1.8-2.4); POTASSIUM SERUM 4.1 MEQ/L (3.5-5.1); SODIUM LEVEL 145 MEQ/L (136-145)
[2018-03-01 19:51] LABS: HEMATOCRIT 38.3 % (36.0-47.0); HEMOGLOBIN 12.7 g/dl (12.0-15.5); MEAN CORPUSCULAR HEMOGLOBIN 30.7 pg (27.0-33.0); MEAN CORPUSCULAR HGB CONC 33.2 g/dl (32.0-36.5); MEAN CORPUSCULAR VOLUME 92.5 fl (80.0-96.0); PLATELET COUNT, AUTOMATED 174 10^3/uL (150-450); RED BLOOD COUNT 4.14 10^6/uL (4.00-5.40); RED CELL DISTRIBUTION WIDTH 12.8 % (11.5-14.5); WHITE BLOOD COUNT 7.3 10^3/uL (4.0-10.0)
== END ==
LOC: M SFHCADAM 17:51
DX: M79.604 Pain in right leg (principal); M79.605 Pain in left leg

== ENCOUNTER 2018-03-11 08:20 | Day surgery (SDC) | payer OTHER ==
[2018-03-11] MEDS: NS 1,000 ML IV (08:45)
[2018-03-11] MEDS ORDERED: LIDOCAINE 2% INJ 100 MG/5 ML SDV (FOR ANES.) As Ordered (09:34)
[2018-03-11] MEDS ORDERED: PROPOFOL 500 MG/50 ML VIAL As Ordered (09:34)
== END 2018-03-11 10:27 | disposition home or self-care (01) ==
LOC: M OPP 08:20
DX: R10.32 Left lower quadrant pain (principal); K59.00 Constipation, unspecified; D12.5 Benign neoplasm of sigmoid colon; I10 Essential (primary) hypertension; E03.9 Hypothyroidism, unspecified; E04.1 Nontoxic single thyroid nodule; K92.1 Melena; M19.90 Unspecified osteoarthritis, unspecified site; M54.89 Other dorsalgia; M54.2 Cervicalgia; M62.838 Other muscle spasm; F41.9 Anxiety disorder, unspecified; F32.9 Major depressive disorder, single episode, unspecified; R51 Headache; Z92.3 Personal history of irradiation; G47.30 Sleep apnea, unspecified; R31.9 Hematuria, unspecified; F17.210 Nicotine dependence, cigarettes, uncomplicated; Z79.899 Other long term (current) drug therapy; Z80.3 Family history of malignant neoplasm of breast
CPT/HCPCS: 45385

== ENCOUNTER → 2018-04-13 | Outpatient (CLI) | payer OTHER | LOC: M ADAMS 08:19 | DX: M94.0 Chondrocostal junction syndrome [Tietze] (principal) | CPT/HCPCS: 71101 ==

== ENCOUNTER 2018-05-04 08:38 | Emergency (ER) | payer OTHER | END 2018-05-04 12:10 | disposition home or self-care (01) | LOC: M ED 08:38 | DX: S20.212A Contusion of left front wall of thorax, initial encounter (principal); F41.9 Anxiety disorder, unspecified; V47.0XXA Car driver injured in collision with fixed or stationary object in nontraffic accident, initial encounter; Y92.481 Parking lot as the place of occurrence of the external cause; F32.9 Major depressive disorder, single episode, unspecified; Z79.899 Other long term (current) drug therapy; Z79.818 Long term (current) use of other agents affecting estrogen receptors and estrogen levels | CPT/HCPCS: 71046 ==

== ENCOUNTER → 2018-05-12 | Outpatient (REF) | payer OTHER ==
[2018-05-12 21:09] LABS: CPK CREATINE PHOSPHOKINASE 83 U/L (26-192)
== END ==
LOC: M SFHCADAM 12:10
DX: M79.10 Myalgia, unspecified site (principal)

== ENCOUNTER → 2018-06-03 | Outpatient (CLI) | payer OTHER | LOC: M RAD 10:27 | DX: Z12.31 Encounter for screening mammogram for malignant neoplasm of breast (principal); Z78.0 Asymptomatic menopausal state; Z80.3 Family history of malignant neoplasm of breast | CPT/HCPCS: 77067 ==

== ENCOUNTER 2018-07-17 17:36 | Emergency (ER) | payer OTHER ==
[2018-07-17 18:43] LABS: HEMATOCRIT 40.8 % (36.0-47.0); HEMOGLOBIN 14.1 g/dl (12.0-15.5); MEAN CORPUSCULAR HEMOGLOBIN 30.7 pg (27.0-33.0); MEAN CORPUSCULAR HGB CONC 34.6 g/dl (32.0-36.5); MEAN CORPUSCULAR VOLUME 88.7 fl (80.0-96.0); PLATELET COUNT, AUTOMATED 218 10^3/uL (150-450); RED CELL DISTRIBUTION WIDTH 11.9 % (11.5-14.5); WHITE BLOOD COUNT 7.9 10^3/uL (4.0-10.0)
[2018-07-17 19:09] LABS: ACETAMINOPHEN LEVEL < 2.0 UG/ML (10.0-30.0); ALBUMIN/GLOBULIN RATIO 1.21 (1.00-1.93); ALKALINE PHOSPHATASE 57 U/L (45-117); ALT/SGPT 18 U/L (12-78); ANION GAP 16 MEQ/L (8-16); AST/SGOT 15 U/L (7-37); BILIRUBIN,DIRECT 0.1 MG/DL (0.0-0.2); BILIRUBIN,TOTAL 0.7 MG/DL (0.2-1.0); BLOOD UREA NITROGEN 25 MG/DL (7-18); CARBON DIOXIDE LEVEL 26 MEQ/L (21-32); CHLORIDE LEVEL 111 MEQ/L (98-107); CREATININE FOR GFR 1.68 MG/DL (0.55-1.30); ETHYL ALCOHOL (ETHANOL) 0.003 % (0.000-0.010); GLOMERULAR FILTRATION RATE 34.1 (>51); GLUCOSE, FASTING 113 MG/DL (70-100); POTASSIUM SERUM 3.5 MEQ/L (3.5-5.1); SALICYLATE LEVEL < 1.7 MG/DL (5.0-30.0); SODIUM LEVEL 153 MEQ/L (136-145); TOTAL PROTEIN 7.3 GM/DL (6.4-8.2)
[2018-07-17 20:43] LABS: AMPHETAMINES LEVEL URINE NEGATIVE (NEGATIVE); BARBITURATES URINE NEGATIVE (NEGATIVE); BENZODIAZEPINES URINE NEGATIVE (NEGATIVE); CANNABINOIDS URINE POSITIVE (NEGATIVE); COCAINE METABOLITE URINE NEGATIVE (NEGATIVE); METHADONE URINE NEGATIVE (NEGATIVE); OPIATES URINE NEGATIVE (NEGATIVE); PHENCYCLIDINE URINE NEGATIVE (NEGATIVE)
[2018-07-17] MEDS: D5W/0.45% SODIUM CHLORIDE 1,000 ML IV (20:45)
[2018-07-17 21:37] LABS: KETONE, URINE AUTO RFX TRACE mg/dL (NEGATIVE); LEUKOCYTE ESTERASE UR AUTO RFX NEGATIVE (NEGATIVE); NITRITE, URINE AUTO RFX NEGATIVE (NEGATIVE); RBC, URINE AUTO RFX 4 /HPF (0-3); SPECIFIC GRAVITY UR AUTO RFX 1.017 (1.002-1.035); SQUAM EPITHELIAL CELL UR AURFX 4 /HPF (0-6); WBC, URINE AUTO RFX 2 /HPF (0-3)
== END 2018-07-17 22:40 | disposition home or self-care (01) ==
LOC: M ED 17:36
DX: F41.8 Other specified anxiety disorders (principal); E86.0 Dehydration; E03.9 Hypothyroidism, unspecified; F33.9 Major depressive disorder, recurrent, unspecified; Z79.899 Other long term (current) drug therapy; Z79.890 Hormone replacement therapy; Z87.891 Personal history of nicotine dependence
CPT/HCPCS: 93005

== ENCOUNTER → 2018-07-21 | Outpatient (REF) | payer OTHER ==
[2018-07-21 20:06] LABS: ALBUMIN 4.1 GM/DL (3.2-5.2); ALBUMIN/GLOBULIN RATIO 1.24 (1.00-1.93); ALKALINE PHOSPHATASE 54 U/L (45-117); ALT/SGPT 18 U/L (12-78); ANION GAP 7 MEQ/L (8-16); AST/SGOT 14 U/L (7-37); BILIRUBIN,TOTAL 0.5 MG/DL (0.2-1.0); BLOOD UREA NITROGEN 27 MG/DL (7-18); CALCIUM LEVEL 9.3 MG/DL (8.5-10.1); CARBON DIOXIDE LEVEL 31 MEQ/L (21-32); CHLORIDE LEVEL 102 MEQ/L (98-107); CREATININE FOR GFR 1.81 MG/DL (0.55-1.30); FREE T4 1.11 NG/DL (0.76-1.46); GLOMERULAR FILTRATION RATE 31.3 (>51); GLUCOSE, FASTING 82 MG/DL (70-100); POTASSIUM SERUM 3.4 MEQ/L (3.5-5.1); SODIUM LEVEL 140 MEQ/L (136-145); TOTAL PROTEIN 7.4 GM/DL (6.4-8.2)
== END ==
LOC: M SFHCADAM 14:12
DX: E03.9 Hypothyroidism, unspecified (principal); E86.0 Dehydration
CPT/HCPCS: 84443

== ENCOUNTER → 2018-07-27 | Outpatient (REF) | payer OTHER ==
[~2018-07-27] MED LIST changes: +AMAN100T PO; +ASPI81CH32 PO; +BRIN10TA4 PO; +ESCI20TA PO; +ESTR1CRE VA; -GASTROGRAFIN SOLUTION 30ML (Q9963) As Ordered; +HYDR12.55; -ISOVUE-370 76% 100ML VIAL (Q9967) As Ordered; +LAMO100T PO; +LEVO100T5 PO; +LEVO112T2 PO; +LEXA1TAB PO; +LINZ290C PO; +MAGN1TAB25 PO; +MAGN200T PO; +MELO7.5T7 PO; +NORC1TAB4 PO; +SERO50TA PO; +TIZA2TA; +TOPA50TA8 PO; +VITA100066 PO; +VITA1CAP25 PO; +VITA50005; +[UNRECOGNIZED DRUG - REMARK]; +magnesium OR
[2018-07-27 17:03] LABS: APPEARANCE, URINE CLEAR (CLEAR); BACTERIA, URINE AUTO NEGATIVE (NEGATIVE); BILIRUBIN, URINE AUTO NEGATIVE (NEGATIVE); BLOOD, URINE BLOOD 1+ (NEGATIVE); COLOR, URINE YELLOW (YELLOW); GLUCOSE, URINE (UA) AUTO NEGATIVE (NEGATIVE); KETONE, URINE AUTO NEGATIVE (NEGATIVE); LEUKOCYTE ESTERASE, URINE AUTO NEGATIVE (NEGATIVE); MUCUS, URINE SMALL (NEGATIVE); NITRITE, URINE AUTO NEGATIVE (NEGATIVE); PROTEIN, URINE AUTO NEGATIVE (NEGATIVE); RBC, URINE AUTO 4 /HPF (0-3); SQUAMOUS EPITHELIAL CELL UR AU 0 /HPF (0-6); UROBILINOGEN, URINE AUTO 0.2 mg/dL (0.0-2.0); WBC, URINE AUTO 1 /HPF (0-3)
[2018-07-27 17:08] LABS: HEMOGLOBIN 12.7 g/dl (12.0-15.5); MEAN CORPUSCULAR HGB CONC 32.6 g/dl (32.0-36.5); MEAN CORPUSCULAR VOLUME 92.2 fl (80.0-96.0); PLATELET COUNT, AUTOMATED 230 10^3/uL (150-450); RED BLOOD COUNT 4.23 10^6/uL (4.00-5.40)
[2018-07-27 17:21] LABS: ALBUMIN 3.9 GM/DL (3.2-5.2); BILIRUBIN,TOTAL 0.4 MG/DL (0.2-1.0); CALCIUM LEVEL 9.3 MG/DL (8.5-10.1); CREATININE FOR GFR 1.07 MG/DL (0.55-1.30); GLOMERULAR FILTRATION RATE 57.3 (>51); MAGNESIUM LEVEL 2.1 MG/DL (1.8-2.4); POTASSIUM SERUM 4.1 MEQ/L (3.5-5.1); TOTAL PROTEIN 7.3 GM/DL (6.4-8.2)
== END ==
LOC: M SFHCADAM 13:40
PROVIDERS: ATTEND Physician Assistant
DX: N17.9 Acute kidney failure, unspecified (principal); R10.2 Pelvic and perineal pain

== ENCOUNTER → 2018-08-31 | Outpatient (CLI) | payer OTHER ==
[2018-08-31 18:27] LABS: BLOOD UREA NITROGEN 23 MG/DL (7-18); CALCIUM LEVEL 8.2 MG/DL (8.5-10.1); CARBON DIOXIDE LEVEL 25 MEQ/L (21-32); CHLORIDE LEVEL 110 MEQ/L (98-107); CREATININE FOR GFR 1.01 MG/DL (0.55-1.30); GLOMERULAR FILTRATION RATE > 60.0 (>51); GLUCOSE, FASTING 87 MG/DL (70-100); POTASSIUM SERUM 4.1 MEQ/L (3.5-5.1); SODIUM LEVEL 141 MEQ/L (136-145)
== END ==
LOC: M SMT 14:11
PROVIDERS: ATTEND Nurse Practitioner Women's Health
DX: R31.29 Other microscopic hematuria (principal)

== ENCOUNTER → 2018-09-15 | Outpatient (CLI) | payer OTHER ==
[~2018-09-15] MED LIST changes: +ISOVUE-370 76% 100ML VIAL (Q9967) As Ordered ONE
--- NOTE | 2018-09-16 09:40 | REP ---
Clinical: Microscopic hematuria. Technique: Axial precontrast, contrast enhanced, and delayed images of the abdomen and pelvis using 100 ml Isovue 370 intravenous contrast material with coronal and sagittal re-formations as well as delayed 3D CT urogram. Findings: Evaluation of the urinary tract system demonstrates 1 cm right renal cyst and few subcentimeter bilateral renal cysts without hydroureternephrosis, perinephric stranding, intrarenal or obstructing ureteral calculi. Kidneys demonstrate symmetric enhancement and excretion to the collecting system. The bilateral ureters and bladder are normal. Liver, spleen, pancreas, and bilateral adrenal glands are normal. Evidence of prior cholecystectomy. The enteric system is without obstruction or acute inflammatory process. Sigmoid diverticula noted without acute diverticulitis. Pelvis demonstrates normal bladder and evidence for prior hysterectomy. Normal terminal ileum, cecum and appendix identified in the right lower quadrant. No ascites. No free air. No adenopathy. Abdominal aorta without aneurysm or dissection. Surrounding musculoskeletal structures are intact. Lung bases are clear. Impression: 1. Few bilateral renal cysts measuring up to 1 cm in the right kidney. No further urinary tract pathology appreciated. 2. Evidence for prior cholecystectomy and hysterectomy. 3. Sigmoid diverticula without acute diverticulitis. 4. No further acute abdominopelvic pathology appreciated. Electronically Signed by Chuy Parry MD 09/16/2018 09:31 A
== END ==
LOC: M RAD 15:26
PROVIDERS: ATTEND Nurse Practitioner Women's Health
DX: N28.1 Cyst of kidney, acquired (principal); K57.30 Diverticulosis of large intestine without perforation or abscess without bleeding; R31.29 Other microscopic hematuria; R10.9 Unspecified abdominal pain
CPT/HCPCS: 74178; Q9967

== ENCOUNTER → 2019-02-20 | Outpatient (CLI) | payer OTHER ==
[~2019-02-20] MED LIST changes: -ASPI81CH32 PO; +ASPI81CH33 PO; -ISOVUE-370 76% 100ML VIAL (Q9967) As Ordered ONE; -LAMO100T PO; +LAMO100T3 PO; -MAGN1TAB25 PO; +MAGN1TAB26 PO; -NORC1TAB4 PO; +NORC1TAB7 PO
== END ==
LOC: M RAD 12:11
PROVIDERS: ATTEND Nurse Practitioner Women's Health
DX: Z53.9 Procedure and treatment not carried out, unspecified reason (principal); Z12.31 Encounter for screening mammogram for malignant neoplasm of breast

== ENCOUNTER → 2019-05-02 | Outpatient (REF) | payer OTHER ==
[~2019-05-02] MED LIST changes: +LAMO100T PO; -LAMO100T3 PO
[2019-05-03 12:24] LABS: HEPATITIS A ANTIBODY IGM NEGATIVE (NEGATIVE); HEPATITIS B CORE ANTIBODY IGM NEGATIVE (NEGATIVE); HEPATITIS B SURFACE ANTIGEN NEGATIVE (NEGATIVE); HEPATITIS C VIRUS ABY INDEX 0.1 INDEX (<0.8); HIV 1&2 SCREEN CENTAUR NEGATIVE (NEGATIVE)
== END ==
LOC: M LABDRAW1 19:50
PROVIDERS: ATTEND Advanced Practice Midwife
DX: Z11.3 Encounter for screening for infections with a predominantly sexual mode of transmission (principal)

== ENCOUNTER → 2019-05-02 | Outpatient (REF) | payer OTHER ==
[2019-05-02 15:42] LABS: CHLAMYDIA DNA AMPLIFICATION NEGATIVE (NEGATIVE); GC DNA AMPLIFICATION NEGATIVE (NEGATIVE)
== END ==
LOC: M LAB REF 13:19
PROVIDERS: ATTEND Advanced Practice Midwife
DX: Z11.3 Encounter for screening for infections with a predominantly sexual mode of transmission (principal)

== ENCOUNTER → 2019-05-10 | Outpatient (CLI) | payer OTHER ==
--- NOTE | 2019-05-10 17:09 | REP ---
PELVIC ULTRASOUND: Real-time sonographic evaluation of the pelvis performed utilizing transabdominal and endovaginal technique. Urinary bladder measures 5.7 x 7.4 x 8.3 cm. The uterus has been surgically removed previously. Ovaries are not visualized. There is extensive bowel in the pelvis. No mass or free fluid is seen. IMPRESSION: Status post hysterectomy. Ovaries could not be visualized. No sonographic evidence of mass or free fluid. Electronically Signed by Franklin Lovell MD 05/11/2019 05:39 P
== END ==
LOC: M RAD 13:43
PROVIDERS: ATTEND Advanced Practice Midwife
DX: R10.32 Left lower quadrant pain (principal)

== ENCOUNTER → 2019-05-24 | Outpatient (REF) | payer OTHER | LOC: M SFHCADAM 13:59 | PROVIDERS: ATTEND Physician Assistant | DX: Z11.4 Encounter for screening for human immunodeficiency virus [HIV] (principal) ==

== ENCOUNTER → 2019-06-20 | Outpatient (CLI) | payer OTHER ==
--- NOTE | 2019-06-20 12:49 | REPMRS ---
Patient History The patient states she had a clinical breast exam in November 2018. Patient is postmenopausal. Family history of breast cancer at age 67 in mother, breast cancer in maternal grandmother. Digital Mammo Screening Bilat: June 20, 2019 - Exam #: [id number] Bilateral CC and MLO view(s) were taken. Technologist: Jacey Denney, Technologist Prior study comparison: June 03, 2018, bilateral digital mammo screening bilat performed at [facility]. June 02, 2017, bilateral digital mammo screening bilat performed at [facility]. May 29, 2016, bilateral digital mammo screening bilat performed at [facility]. FINDINGS: The breast tissue is heterogeneously dense. This may lower the sensitivity of mammography. There is a moderate amount of heterogeneously dense fibroglandular tissue which is fairly symmetric. There is no interval development of dominant mass, architectural distortion, or grouped microcalcification typical of malignancy. There has been no change in the appearance of the mammogram from the prior studies. 3-D tomosynthesis shows no additional findings. Assessment: BI-RADS/ACR category 1 mammogram. Negative Mammogram. Recommendation Routine screening mammogram of both breasts in 1 year (for women over age 40). This patient's Lifetime Breast Cancer RIsk is estimated at 17.2 %. This mammogram was interpreted with the aid of an FDA-approved computer-aided dectection system. Electronically Signed By: Kausahl Lee MD 06/20/19 7778
== END ==
LOC: M RAD 10:08
PROVIDERS: ATTEND Advanced Practice Midwife
DX: Z12.31 Encounter for screening mammogram for malignant neoplasm of breast (principal); Z80.3 Family history of malignant neoplasm of breast

== ENCOUNTER → 2019-07-12 | Outpatient (CLI) | payer MEDICAID ==
[~2019-07-12] MED LIST changes: -LAMO100T PO; +LAMO100T3 PO
== END ==
LOC: M OUTALCOH 08:39
PROVIDERS: ATTEND Psychiatry & Neurology Psychiatry
DX: Z13.39 Encounter for screening examination for other mental health and behavioral disorders (principal); F15.20 Other stimulant dependence, uncomplicated; F12.20 Cannabis dependence, uncomplicated; F10.10 Alcohol abuse, uncomplicated

== ENCOUNTER → 2019-08-08 | Outpatient (RCR) | payer MEDICAID | LOC: M OUTALCOH 12:47 | PROVIDERS: ATTEND Psychiatry & Neurology Psychiatry | DX: F15.20 Other stimulant dependence, uncomplicated (principal); F12.20 Cannabis dependence, uncomplicated; F10.10 Alcohol abuse, uncomplicated; F17.200 Nicotine dependence, unspecified, uncomplicated ==

== ENCOUNTER 2019-09-05 10:00 | Outpatient (RCR) | payer MEDICAID | END 2019-09-08 | LOC: M OUTALCOH 10:00 | PROVIDERS: ATTEND Psychiatry & Neurology Psychiatry | DX: F15.20 Other stimulant dependence, uncomplicated (principal); F12.20 Cannabis dependence, uncomplicated; F10.10 Alcohol abuse, uncomplicated; F17.200 Nicotine dependence, unspecified, uncomplicated ==

== ENCOUNTER → 2019-09-19 | Outpatient (REF) | payer OTHER ==
[2019-09-19 19:09] LABS: HEMATOCRIT 39.2 % (36.0-47.0); HEMOGLOBIN 12.9 g/dl (12.0-15.5); MEAN CORPUSCULAR HEMOGLOBIN 29.7 pg (27.0-33.0); MEAN CORPUSCULAR HGB CONC 32.9 g/dl (32.0-36.5); MEAN CORPUSCULAR VOLUME 90.1 fl (80.0-96.0); PLATELET COUNT, AUTOMATED 194 10^3/uL (150-450); RED BLOOD COUNT 4.35 10^6/uL (4.00-5.40); WHITE BLOOD COUNT 6.9 10^3/uL (4.0-10.0)
[2019-09-19 19:47] LABS: ALT/SGPT 14 U/L (12-78); BILIRUBIN,TOTAL 0.5 MG/DL (0.2-1.0); BLOOD UREA NITROGEN 34 MG/DL (7-18); CALCIUM LEVEL 9.3 MG/DL (8.5-10.1); CARBON DIOXIDE LEVEL 23 MEQ/L (21-32); CHLORIDE LEVEL 109 MEQ/L (98-107); CREATININE FOR GFR 1.02 MG/DL (0.55-1.30); FREE T4 1.52 NG/DL (0.76-1.46); GLOMERULAR FILTRATION RATE > 60.0 (>51); GLUCOSE, FASTING 86 MG/DL (70-100); POTASSIUM SERUM 4.2 MEQ/L (3.5-5.1); SODIUM LEVEL 141 MEQ/L (136-145); THYROID STIMULATING HORMONE 0.984 uIU/ML (0.358-3.740); TOTAL PROTEIN 6.9 GM/DL (6.4-8.2)
== END ==
LOC: M SFHCADAM 16:44
PROVIDERS: ATTEND Physician Assistant
DX: G56.03 Carpal tunnel syndrome, bilateral upper limbs (principal); E03.9 Hypothyroidism, unspecified; F10.11 Alcohol abuse, in remission

== ENCOUNTER 2019-09-25 14:00 | Outpatient (RCR) | payer MEDICAID ==
[2019-09-29] MEDS ORDERED: ROBICAP2 PO (13:25)
[2019-09-29] MEDS ORDERED: IBUP-1022 PO ×2 (13:25→17:46)
[2019-09-29] MEDS ORDERED: ESCI20TA PO (17:46)
[2019-09-29] MEDS ORDERED: ASPI-161 PO (17:47)
[2019-09-29] MEDS ORDERED: LEVO100T5 PO (17:47)
== END 2019-10-07 ==
LOC: M OUTALCOH 14:00
PROVIDERS: ATTEND Psychiatry & Neurology Psychiatry
DX: F15.20 Other stimulant dependence, uncomplicated (principal); F12.20 Cannabis dependence, uncomplicated; F10.10 Alcohol abuse, uncomplicated; F17.200 Nicotine dependence, unspecified, uncomplicated

== ENCOUNTER → 2019-09-26 | Outpatient (REF) | payer OTHER ==
[2019-09-26 21:54] LABS: INFLUENZA A AMPLIFICATION NEGATIVE (NEGATIVE); INFLUENZA B AMPLIFICATION POSITIVE (NEGATIVE)
== END ==
LOC: M LAB 20:28
PROVIDERS: ATTEND Physician Assistant
DX: R50.9 Fever, unspecified (principal)

== ENCOUNTER 2019-09-29 09:10 | Observation (INO) | payer OTHER ==
[~2019-09-29] VITALS: Ht 157.5 cm; Wt 56.0 kg
[2019-09-29] MEDS ORDERED: ACETAMINOPHEN TAB 650MG DOSE (2X325MG) PO ONE (10:00)
[2019-09-29 10:30] LABS: BASO % 0.3 % (0.0-1.0); EOS # 0.2 10^3/uL (0.0-0.5); EOS % 3.8 % (0.0-3.0); HEMATOCRIT 43.5 % (36.0-47.0); HEMOGLOBIN 14.2 g/dl (12.0-15.5); LYMPH # 1.3 10^3/uL (1.5-5.0); LYMPH % 32.2 % (24.0-44.0); MEAN CORPUSCULAR HEMOGLOBIN 28.9 pg (27.0-33.0); MEAN CORPUSCULAR HGB CONC 32.6 g/dl (32.0-36.5); MEAN CORPUSCULAR VOLUME 88.6 fl (80.0-96.0); MONO # 0.6 10^3/uL (0.0-0.8); MONO % 14.3 % (0.0-5.0); NEUTROPHILS # 1.9 10^3/uL (1.5-8.5); NEUTROPHILS % 49.1 % (36.0-66.0); PLATELET COUNT, AUTOMATED 112 10^3/uL (150-450); RED BLOOD COUNT 4.91 10^6/uL (4.00-5.40); WHITE BLOOD COUNT 3.9 10^3/uL (4.0-10.0)
[2019-09-29] MEDS ORDERED: NS 1,000 ML IV ONE (10:30)
[2019-09-29 11:09] LABS: ALT/SGPT 16 U/L (12-78); BILIRUBIN,DIRECT 0.1 MG/DL (0.0-0.2); BILIRUBIN,TOTAL 0.4 MG/DL (0.2-1.0); BLOOD UREA NITROGEN 22 MG/DL (7-18); CALCIUM LEVEL 9.6 MG/DL (8.5-10.1); CARBON DIOXIDE LEVEL 27 MEQ/L (21-32); CHLORIDE LEVEL 111 MEQ/L (98-107); CK-MB VALUE MASS 1.1 NG/ML (<3.6); CPK CREATINE PHOSPHOKINASE 101 U/L (26-192); CREATININE FOR GFR 1.02 MG/DL (0.55-1.30); GLOMERULAR FILTRATION RATE > 60.0 (>51); GLUCOSE, FASTING 88 MG/DL (70-100); LIPASE 132 U/L (73-393); MB/CK RELATIVE INDEX 1.09 (< OR =4); POTASSIUM SERUM 4.3 MEQ/L (3.5-5.1); SODIUM LEVEL 139 MEQ/L (136-145); TOTAL PROTEIN 7.1 GM/DL (6.4-8.2); TROPONIN I < 0.02 NG/ML (< 0.10)
--- NOTE | 2019-09-29 11:13 | REP ---
Clinical: Cough and fever . Comparison: 05/04/2018 . Technique: PA and lateral. Findings: The mediastinum and cardiac silhouette are normal. The lung rowland are clear and without acute consolidation, effusion, or pneumothorax. The skeletal structures are intact and normal. Impression: 1. No acute cardiopulmonary process. Electronically Signed by Chuy Parry MD 09/29/2019 11:04 A
[2019-09-29] MEDS ORDERED: DEXTROMETHORPHAN 60MG/10ML SUSP 90ML BTL(DELSYM) PO STA (11:33)
[2019-09-29] MEDS ORDERED: DEXTROMETHORPHAN 60MG/10ML SUSP 90ML BTL(DELSYM) PO ONE (13:00)
[2019-09-29] MEDS ORDERED: IBUP-1022 PO ×2 (13:25→17:46)
[2019-09-29] MEDS ORDERED: ROBICAP2 PO (13:25)
[2019-09-29 14:15] LABS: THYROID STIMULATING HORMONE 0.744 uIU/ML (0.358-3.740)
[2019-09-29] MEDS ORDERED: NS 500 ML IV ONE (14:45)
[2019-09-29 16:57] VITALS: O2SAT 95
[2019-09-29] MEDS ORDERED: ESCI20TA PO (17:46)
[2019-09-29] MEDS ORDERED: LEVO100T5 PO (17:47)
[2019-09-29] MEDS ORDERED: ASPI-161 PO (17:47)
[2019-09-29] MEDS ORDERED: ACETAMINOPHEN TAB 650MG DOSE (2X325MG) PO PRN (18:30)
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
--- NOTE | 2019-09-29 20:12 | ECGEPIP ---
[facility] Test Date: 2019-09-29 Pat Name: TULIO DUFFY Department: Room: - Gender: Female Battery Hand: : 1965 Requested By: ALICIA Schaefer PA-C Order Number: [id number] Reading MD: Rudy Rashid Measurements Intervals Mobile Rate: 49 P: 65 MS: 156 QRS: 32 QRSD: 89 T: 76 QT: 449 QTc: 409 Interpretive Statements SINUS BRADYCARDIA NONSPECIFIC T-WAVE ABNORMALITY No significant change compared with 07/17/2018. Electronically Signed on 09-29-2019 20:12:14 EST by Rudy Rashid
[2019-09-29 20:48] LABS: AMPHETAMINES LEVEL URINE NEGATIVE (NEGATIVE); BARBITURATES URINE NEGATIVE (NEGATIVE); BENZODIAZEPINES URINE NEGATIVE (NEGATIVE); CANNABINOIDS URINE NEGATIVE (NEGATIVE); COCAINE METABOLITE URINE NEGATIVE (NEGATIVE); METHADONE URINE NEGATIVE (NEGATIVE); OPIATES URINE NEGATIVE (NEGATIVE); PHENCYCLIDINE URINE NEGATIVE (NEGATIVE)
[2019-09-29] MEDS: NS 1,000 ML IV SCH (21:25)
[2019-09-29 21:45] VITALS: BP 111/53
[2019-09-29] MEDS: BENZONATATE 100 MG CAP PO PRN (22:47)
[2019-09-29] MEDS: IBUPROFEN 400 MG TAB PO PRN (22:47)
[2019-09-29] MEDS: TOPIRAMATE (TopAMAX) 25 MG TAB PO SCH (22:49)
[2019-09-30] MEDS ORDERED: LEVOTHYROXINE 100MCG TABLET (0.1MG) PO SCH (06:00)
[2019-09-30] MEDS: BENZONATATE 100 MG CAP PO PRN (06:29)
[2019-09-30 06:30] VITALS: BP 100/52
[2019-09-30 08:00] VITALS: BP 105/51
[2019-09-30] MEDS: TOPIRAMATE (TopAMAX) 25 MG TAB PO SCH (08:01)
[2019-09-30] MEDS: NS 1,000 ML IV SCH (08:01)
[2019-09-30] MEDS: IBUPROFEN 400 MG TAB PO PRN (08:02)
[2019-09-30 08:54] LABS: HEMATOCRIT 37.3 % (36.0-47.0); HEMOGLOBIN 12.3 g/dl (12.0-15.5); MEAN CORPUSCULAR HEMOGLOBIN 29.4 pg (27.0-33.0); MEAN CORPUSCULAR VOLUME 89.2 fl (80.0-96.0); PLATELET COUNT, AUTOMATED 102 10^3/uL (150-450); RED BLOOD COUNT 4.18 10^6/uL (4.00-5.40); WHITE BLOOD COUNT 4.1 10^3/uL (4.0-10.0)
[2019-09-30] MEDS ORDERED: ENOXAPARIN 40 MG/0.4 ML SYRINGE (J1650) SC SCH (09:00)
[2019-09-30 09:11] LABS: BLOOD UREA NITROGEN 16 MG/DL (7-18); CALCIUM LEVEL 8.7 MG/DL (8.5-10.1); CARBON DIOXIDE LEVEL 24 MEQ/L (21-32); CHLORIDE LEVEL 115 MEQ/L (98-107); CREATININE FOR GFR 0.79 MG/DL (0.55-1.30); GLOMERULAR FILTRATION RATE > 60.0 (>51); GLUCOSE, FASTING 107 MG/DL (70-100); POTASSIUM SERUM 4.1 MEQ/L (3.5-5.1); SODIUM LEVEL 142 MEQ/L (136-145)
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
== END 2019-09-30 11:05 | disposition home or self-care (01) ==
LOC: M ED 09:10 → M ED INP 09:11 → ENRESERVDT 20:57 → ENRESERVTM 20:57 → M PED 21:33
PROVIDERS: ADMIT Internal Medicine; ATTEND Family Medicine
DX: J10.1 Influenza due to other identified influenza virus with other respiratory manifestations (principal); D72.819 Decreased white blood cell count, unspecified; D69.6 Thrombocytopenia, unspecified; E03.9 Hypothyroidism, unspecified; F32.9 Major depressive disorder, single episode, unspecified; F17.218 Nicotine dependence, cigarettes, with other nicotine-induced disorders; I83.899 Varicose veins of unspecified lower extremity with other complications; Z79.82 Long term (current) use of aspirin; K58.1 Irritable bowel syndrome with constipation; F10.11 Alcohol abuse, in remission; Z79.899 Other long term (current) drug therapy
CPT/HCPCS: 36415; 71046; 80048; 80076; 80307; 81001; 82550; 82553; 83690; 84439; 84443; 84702; 85025; 85027; 93005; 96360; 96361; 99284; J1650

== ENCOUNTER 2019-10-24 15:55 | Emergency (ER) | payer OTHER ==
[~2019-10-24] VITALS: Ht 157.5 cm; Wt 57.1 kg
[~2019-10-24 15:55] MED LIST changes: +ASPI-161 PO; +IBUP-1022 PO; +ROBICAP2 PO
[2019-10-24] MEDS ORDERED: HYDR25TAB (16:06)
[2019-10-24] MEDS ORDERED: VITA200016 (16:06)
[2019-10-24] MEDS ORDERED: NS 1,000 ML IV ONE (16:30)
[2019-10-24 16:55] LABS: BASO % 0.6 % (0.0-1.0); EOS # 0.2 10^3/uL (0.0-0.5); EOS % 3.5 % (0.0-3.0); HEMATOCRIT 37.7 % (36.0-47.0); HEMOGLOBIN 12.6 g/dl (12.0-15.5); LYMPH # 2.2 10^3/uL (1.5-5.0); LYMPH % 31.9 % (24.0-44.0); MEAN CORPUSCULAR HEMOGLOBIN 29.5 pg (27.0-33.0); MEAN CORPUSCULAR HGB CONC 33.4 g/dl (32.0-36.5); MEAN CORPUSCULAR VOLUME 88.3 fl (80.0-96.0); MONO # 0.5 10^3/uL (0.0-0.8); MONO % 7.1 % (0.0-5.0); NEUTROPHILS # 3.8 10^3/uL (1.5-8.5); NEUTROPHILS % 56.8 % (36.0-66.0); PLATELET COUNT, AUTOMATED 181 10^3/uL (150-450); RED BLOOD COUNT 4.27 10^6/uL (4.00-5.40); WHITE BLOOD COUNT 6.8 10^3/uL (4.0-10.0)
[2019-10-24 17:25] LABS: ALBUMIN 3.6 GM/DL (3.2-5.2); ALT/SGPT 23 U/L (12-78); BILIRUBIN,DIRECT < 0.1 MG/DL (0.0-0.2); BILIRUBIN,TOTAL 0.4 MG/DL (0.2-1.0); BLOOD UREA NITROGEN 25 MG/DL (7-18); CALCIUM LEVEL 8.8 MG/DL (8.5-10.1); CARBON DIOXIDE LEVEL 29 MEQ/L (21-32); CHLORIDE LEVEL 108 MEQ/L (98-107); GLOMERULAR FILTRATION RATE > 60.0 (>51); GLUCOSE, FASTING 95 MG/DL (70-100); LIPASE 114 U/L (73-393); POTASSIUM SERUM 3.6 MEQ/L (3.5-5.1); SODIUM LEVEL 141 MEQ/L (136-145); TOTAL PROTEIN 6.7 GM/DL (6.4-8.2)
[2019-10-24 17:31] LABS: INFLUENZA A AMPLIFICATION NEGATIVE (NEGATIVE); INFLUENZA B AMPLIFICATION NEGATIVE (NEGATIVE)
[2019-10-24] MEDS ORDERED: ALL10TAB2 PO (17:43)
[2019-10-24 17:55] VITALS: BP 100/51
[2019-10-26] MEDS ORDERED: NAPR-885 PO (10:41)
== END 2019-10-24 17:57 | disposition home or self-care (01) ==
LOC: M ED 15:55
DX: J00 Acute nasopharyngitis [common cold] (principal); R53.81 Other malaise; R53.83 Other fatigue; F17.200 Nicotine dependence, unspecified, uncomplicated; Z79.82 Long term (current) use of aspirin; Z79.899 Other long term (current) drug therapy; Z88.8 Allergy status to other drugs, medicaments and biological substances

== ENCOUNTER 2019-11-01 09:00 | Outpatient (RCR) | payer OTHER ==
[~2019-11-01 09:00] MED LIST changes: +ALL10TAB2 PO; +HYDR25TAB; +NAPR-885 PO; +VITA200016
== END 2019-11-07 ==
LOC: M OUTALCOH 09:00
PROVIDERS: ATTEND Psychiatry & Neurology Addiction Medicine
DX: F15.20 Other stimulant dependence, uncomplicated (principal); F12.20 Cannabis dependence, uncomplicated; F10.10 Alcohol abuse, uncomplicated; F17.200 Nicotine dependence, unspecified, uncomplicated

== ENCOUNTER → 2019-11-10 | Outpatient (CLI) | payer OTHER ==
--- NOTE | 2019-11-10 16:46 | REPPI ---
CHEST, TWO VIEWS: COMPARISON: 09/29/2019 There is no evidence of acute infiltrate. No pleural effusion is seen. The heart is normal in size. The mediastinal silhouette is unremarkable. The visualized osseous structures are intact. IMPRESSION: No acute pulmonary disease. Electronically Signed by Franklin Lovell MD 11/10/2019 11:24 P
== END ==
LOC: M PLAIMG 15:56
PROVIDERS: ATTEND Physician Assistant
DX: J40 Bronchitis, not specified as acute or chronic (principal)

== ENCOUNTER → 2019-12-07 | Outpatient (RCR) | payer OTHER | LOC: M OUTALCOH 11-14 16:51 | PROVIDERS: ATTEND Psychiatry & Neurology Addiction Medicine | DX: F15.20 Other stimulant dependence, uncomplicated (principal); F12.20 Cannabis dependence, uncomplicated; F10.10 Alcohol abuse, uncomplicated; F17.200 Nicotine dependence, unspecified, uncomplicated ==

== ENCOUNTER 2020-01-04 10:00 | Outpatient (RCR) | payer MEDICAID | END 2020-01-07 | LOC: M OUTALCOH 10:00 | PROVIDERS: ATTEND Psychiatry & Neurology Addiction Medicine | DX: F15.20 Other stimulant dependence, uncomplicated (principal); F12.20 Cannabis dependence, uncomplicated; F10.10 Alcohol abuse, uncomplicated; F17.200 Nicotine dependence, unspecified, uncomplicated ==

== ENCOUNTER → 2020-01-12 | Outpatient (CLI) | payer MEDICAID ==
[2020-01-12 14:32] LABS: BLOOD UREA NITROGEN 24 MG/DL (7-18); CALCIUM LEVEL 8.8 MG/DL (8.5-10.1); CARBON DIOXIDE LEVEL 29 MEQ/L (21-32); CHLORIDE LEVEL 103 MEQ/L (98-107); CREATININE FOR GFR 0.96 MG/DL (0.55-1.30); GLOMERULAR FILTRATION RATE > 60.0 (>51); GLUCOSE, FASTING 98 MG/DL (70-100); POTASSIUM SERUM 3.6 MEQ/L (3.5-5.1); SODIUM LEVEL 138 MEQ/L (136-145)
== END ==
LOC: M PLALAB 12:08
PROVIDERS: ATTEND Orthopaedic Surgery Hand Surgery
DX: Z01.818 Encounter for other preprocedural examination (principal); Z79.899 Other long term (current) drug therapy

== ENCOUNTER → 2020-01-15 | Outpatient (CLI) | payer OTHER | LOC: M LABSMTC 09:27 | PROVIDERS: ATTEND Orthopaedic Surgery Hand Surgery | DX: Z03.818 Encounter for observation for suspected exposure to other biological agents ruled out (principal); Z11.59 Encounter for screening for other viral diseases ==

== ENCOUNTER 2020-02-05 13:12 | Outpatient (RCR) | payer MEDICAID | END 2020-02-06 | LOC: M OUTALCOH 13:12 | PROVIDERS: ATTEND Psychiatry & Neurology Addiction Medicine | DX: F15.20 Other stimulant dependence, uncomplicated (principal); F12.20 Cannabis dependence, uncomplicated; F10.10 Alcohol abuse, uncomplicated; F17.200 Nicotine dependence, unspecified, uncomplicated ==

== ENCOUNTER 2020-03-07 10:00 | Outpatient (RCR) | payer MEDICAID | END 2020-03-08 | LOC: M OUTALCOH 10:00 | PROVIDERS: ATTEND Psychiatry & Neurology Addiction Medicine | DX: F15.20 Other stimulant dependence, uncomplicated (principal); F12.20 Cannabis dependence, uncomplicated; F10.10 Alcohol abuse, uncomplicated; F17.200 Nicotine dependence, unspecified, uncomplicated ==

== ENCOUNTER → 2020-04-08 | Outpatient (RCR) | payer MEDICAID | LOC: M OUTALCOH 03-11 16:00 | PROVIDERS: ATTEND Psychiatry & Neurology Addiction Medicine | DX: F15.20 Other stimulant dependence, uncomplicated (principal); F12.20 Cannabis dependence, uncomplicated; F10.10 Alcohol abuse, uncomplicated; F17.200 Nicotine dependence, unspecified, uncomplicated ==

== ENCOUNTER → 2020-04-12 | Outpatient (REF) | payer MEDICAID ==
[2020-04-12 19:33] LABS: ALBUMIN 3.8 GM/DL (3.2-5.2); BILIRUBIN,TOTAL 0.3 MG/DL (0.2-1.0); CALCIUM LEVEL 9.7 MG/DL (8.5-10.1); CHOLESTEROL RISK RATIO 4.2 (<5); CREATININE FOR GFR 1.04 MG/DL (0.55-1.30); GLOMERULAR FILTRATION RATE 58.8 (>51); POTASSIUM SERUM 4.1 MEQ/L (3.5-5.1)
[2020-04-12 19:35] LABS: TOTAL 25(OH) VITAMIN D 31.4 NG/ML (30.0-100.0)
== END ==
LOC: M LABDRWAD 17:32
PROVIDERS: ATTEND Physician Assistant
DX: E78.5 Hyperlipidemia, unspecified (principal); E55.9 Vitamin D deficiency, unspecified; G62.9 Polyneuropathy, unspecified; R60.9 Edema, unspecified

== ENCOUNTER → 2020-05-08 | Outpatient (RCR) | payer MEDICAID | LOC: M OUTALCOH 04-10 10:55 | PROVIDERS: ATTEND Psychiatry & Neurology Addiction Medicine | DX: F15.20 Other stimulant dependence, uncomplicated (principal); F12.20 Cannabis dependence, uncomplicated; F10.10 Alcohol abuse, uncomplicated; F17.200 Nicotine dependence, unspecified, uncomplicated ==

== ENCOUNTER 2020-06-07 08:45 | Outpatient (RCR) | payer MEDICAID | END 2020-06-08 | LOC: M OUTALCOH 08:45 | PROVIDERS: ATTEND Psychiatry & Neurology Addiction Medicine | DX: F15.20 Other stimulant dependence, uncomplicated (principal); F12.20 Cannabis dependence, uncomplicated; F10.10 Alcohol abuse, uncomplicated; F17.200 Nicotine dependence, unspecified, uncomplicated ==

== ENCOUNTER → 2020-06-21 | Outpatient (CLI) | payer MEDICAID, OTHER | LOC: M PLALAB 11:24 | PROVIDERS: ATTEND Advanced Practice Midwife | DX: Z13.79 Encounter for other screening for genetic and chromosomal anomalies (principal) ==

== ENCOUNTER → 2020-06-21 | Outpatient (REF) | payer OTHER ==
[2020-06-21 15:50] LABS: HEPATITIS C VIRUS ABY INDEX 0.1 INDEX (<0.8); HIV 1&2 SCREEN CENTAUR NEGATIVE (NEGATIVE)
== END ==
LOC: M PLALAB 11:22
PROVIDERS: ATTEND Advanced Practice Midwife
DX: Z11.3 Encounter for screening for infections with a predominantly sexual mode of transmission (principal)

== ENCOUNTER → 2020-06-25 | Outpatient (REF) | payer OTHER ==
[2020-06-25 13:09] LABS: HEMATOCRIT 42.2 % (36.0-47.0); HEMOGLOBIN 13.9 g/dl (12.0-15.5); MEAN CORPUSCULAR HGB CONC 32.9 g/dl (32.0-36.5); MEAN CORPUSCULAR VOLUME 90.9 fl (80.0-96.0); PLATELET COUNT, AUTOMATED 174 10^3/uL (150-450); RED BLOOD COUNT 4.64 10^6/uL (4.00-5.40); WHITE BLOOD COUNT 7.1 10^3/uL (4.0-10.0)
[2020-06-25 13:43] LABS: ERYTHROCYTE SEDIMENTATION RATE 12 mm/hr (0-30)
[2020-06-25 13:51] LABS: ALBUMIN 3.9 GM/DL (3.2-5.2); ALT/SGPT 41 U/L (12-78); BILIRUBIN,TOTAL 0.5 MG/DL (0.2-1.0); BLOOD UREA NITROGEN 20 MG/DL (7-18); CALCIUM LEVEL 8.9 MG/DL (8.5-10.1); CARBON DIOXIDE LEVEL 27 MEQ/L (21-32); CHLORIDE LEVEL 109 MEQ/L (98-107); CHOLESTEROL LEVEL 203 MG/DL (<200); CHOLESTEROL RISK RATIO 2.859 (<5); CPK CREATINE PHOSPHOKINASE 98 U/L (26-192); CREATININE FOR GFR 0.96 MG/DL (0.55-1.30); FREE T4 1.27 NG/DL (0.76-1.46); GLOMERULAR FILTRATION RATE > 60.0 (>51); GLUCOSE, FASTING 74 MG/DL (70-100); HDL CHOLESTEROL 71 MG/DL (>40); LDL CHOLESTEROL 115 MG/DL (<100); NON-HDL-C 132 MG/DL; POTASSIUM SERUM 4.5 MEQ/L (3.5-5.1); SODIUM LEVEL 140 MEQ/L (136-145); TOTAL PROTEIN 6.7 GM/DL (6.4-8.2); TRIGLYCERIDES LEVEL 84 MG/DL (<150)
== END ==
LOC: M SFHCADAM 08:41
PROVIDERS: ATTEND Physician Assistant
DX: M79.10 Myalgia, unspecified site (principal); E78.00 Pure hypercholesterolemia, unspecified

== ENCOUNTER 2020-07-01 08:45 | Outpatient (RCR) | payer MEDICAID ==
[2020-07-08] MEDS ORDERED: TOPI100T9 PO (10:54)
[2020-07-08] MEDS ORDERED: ULTR50TA8 PO (11:25)
== END 2020-07-08 ==
LOC: M OUTALCOH 08:45
PROVIDERS: ATTEND Psychiatry & Neurology Addiction Medicine
DX: F15.20 Other stimulant dependence, uncomplicated (principal); F12.20 Cannabis dependence, uncomplicated; F10.10 Alcohol abuse, uncomplicated; F17.200 Nicotine dependence, unspecified, uncomplicated

== ENCOUNTER 2020-07-08 10:35 | Emergency (ER) | payer MEDICAID, OTHER ==
[~2020-07-08] VITALS: Ht 157.5 cm; Wt 65.2 kg
[2020-07-08 10:37] VITALS: BP 112/54
[2020-07-08] MEDS ORDERED: TOPI100T9 PO (10:54)
[2020-07-08] MEDS ORDERED: ULTR50TA8 PO (11:25)
== END 2020-07-08 11:43 | disposition home or self-care (01) ==
LOC: M ED 10:35
DX: Z11.59 Encounter for screening for other viral diseases (principal); G89.29 Other chronic pain; M25.531 Pain in right wrist; M25.511 Pain in right shoulder; F17.200 Nicotine dependence, unspecified, uncomplicated; Z79.82 Long term (current) use of aspirin; Z79.899 Other long term (current) drug therapy; Z88.8 Allergy status to other drugs, medicaments and biological substances
CPT/HCPCS: 99282; U0003

== ENCOUNTER → 2020-07-11 | Outpatient (CLI) | payer OTHER ==
[~2020-07-11] MED LIST changes: +METH1TAB40 PO; +TOPI100T9 PO; +ULTR50TA8 PO
--- NOTE | 2020-07-11 07:44 | REP ---
INDICATION: R10.2 PELVIC PAIN,HAS HYSTERECTOMY,HAS OVARIES COMPARISON: None. TECHNIQUE: Transabdominal pelvic ultrasound was performed. FINDINGS: Bladder is unremarkable and measures 5.9 x 4.3 x 1.8 cm. Evidence for prior hysterectomy. Ovaries are not identified. No pelvic fluid or obvious adnexal mass lesion. IMPRESSION: Limited examination. No obvious abnormality. <Electronically signed by Chuy Parry > 07/11/20 0742
--- NOTE | 2020-07-11 09:20 | REPMRS ---
Patient History The patient states she had a clinical breast exam in 06/28 Patient is postmenopausal and has history of thyroid cancer at age 44. Family history of breast cancer at age 67 in mother, breast cancer in maternal grandmother. Digital Woman Screen Mammo: July 11, 2020 - Exam #: [id number] Bilateral CC and MLO view(s) were taken. Technologist: Rosa Maria Johnson, Technologist Prior study comparison: June 20, 2019, bilateral digital mammo screening bilat, performed at [facility]. June 03, 2018, bilateral digital mammo screening bilat, performed at [facility]. June 02, 2017, bilateral digital mammo screening bilat, performed at [facility]. FINDINGS: The breast tissue is heterogeneously dense. This may lower the sensitivity of mammography. The Volpara volumetric breast density category is: C. There is a moderate amount of heterogeneously dense fibroglandular tissue which is fairly symmetric. There is no interval development of dominant mass, architectural distortion, or grouped microcalcification typical of malignancy. There has been no change in the appearance of the mammogram from the prior studies. 3-D tomosynthesis shows no additional findings. Assessment: BI-RADS/ACR category 1 mammogram. Negative Mammogram. Recommendation Routine screening mammogram of both breasts in 1 year (for women over age 40). This patient's [facility] Lifetime Breast Cancer RIsk is estimated at 16.8 %. This mammogram was interpreted with the aid of an FDA-approved computer-aided dectection system. Electronically Signed By: Kaushal Lee MD 07/11/20 0919
== END ==
LOC: M WHC 06:49
PROVIDERS: ATTEND Advanced Practice Midwife
DX: Z12.31 Encounter for screening mammogram for malignant neoplasm of breast (principal); R10.2 Pelvic and perineal pain; Z80.3 Family history of malignant neoplasm of breast; Z85.850 Personal history of malignant neoplasm of thyroid

== ENCOUNTER 2020-07-15 10:32 | Emergency (ER) | payer OTHER ==
[~2020-07-15] VITALS: Ht 157.5 cm; Wt 64.1 kg
[~2020-07-15 10:32] MED LIST changes: -METH1TAB40 PO
[2020-07-15] MEDS ORDERED: NORCO, ANEXSIA 5/325MG TABLET (HYDROcodone/ACETAMINOPHEN) PO ONE (11:45)
--- NOTE | 2020-07-15 12:39 | REP ---
INDICATION: Fall - posterior trauma. COMPARISON: Comparison CT study January 24, 2014.. TECHNIQUE: Helical scanning is acquired. 5 mm axial images were reformatted. Coronal MPR images were generated. FINDINGS: Bone window settings demonstrate an intact bony calvarium. There is no evidence of skull fracture or incidental bony calvarial lesion. The visualized paranasal sinuses appear clear. No intraorbital abnormality is seen. On soft tissue window setting images; the lateral, third, and fourth ventricles are normal in size and position. Lovell-white differentiation pattern is normal above and below the tentorium. There are is no evidence of intracranial hemorrhage. No mass, edema, infarction, or midline shift is seen. No extra-axial fluid collection is appreciated. IMPRESSION: Negative noncontrast head CT. <Electronically signed by Kaushal Lee > 07/15/20 1239
--- NOTE | 2020-07-15 12:42 | REP ---
INDICATION: Fall - posterior trauma. COMPARISON: Comparison CT study January 24, 2014.. TECHNIQUE: Helical scanning is acquired and overlapping 2 mm high resolution axial images were generated and reviewed at bone and soft tissue window settings. Coronal and sagittal multiplanar re-formations images are generated. FINDINGS: There is no evidence of cervical spine element fracture. No skull base fracture is seen. Cervical vertebral body heights are preserved. Alignment is normal. Facet joints are normally aligned bilaterally at each cervical level on multiplanar re-formations images. There is no evidence of intraspinal or paraspinal hematoma. No extra vertebral abnormality is seen. There is straightening of the normal cervical lordosis as previously noted. Mild degenerative changes are seen at the C1-2 articulation. Degenerative disc spurring is noted mild in degree at C5-6 unchanged from the comparison exam. There is osteoarthritic facet hypertrophy in the midcervical spine. IMPRESSION: Negative CT study of the cervical spine without contrast. No fracture seen. <Electronically signed by Kaushal Lee > 07/15/20 [id number]
--- NOTE | 2020-07-15 13:18 | REP ---
INDICATION: Fall COMPARISON: None. TECHNIQUE: Two views right humerus obtained. FINDINGS: There is no evidence of acute fracture, dislocation, or intrinsic bone disease. IMPRESSION: No fracture or dislocation. <Electronically signed by Franklin Lovell > 07/15/20 [id number]
[2020-07-15] MEDS ORDERED: METH1TAB40 PO (13:53)
[2020-07-15 14:19] VITALS: BP 106/61
== END 2020-07-15 14:22 | disposition home or self-care (01) ==
LOC: M ED 10:32
DX: S09.90XA Unspecified injury of head, initial encounter (principal); S13.4XXA Sprain of ligaments of cervical spine, initial encounter; W00.9XXA Unspecified fall due to ice and snow, initial encounter; Y92.89 Other specified places as the place of occurrence of the external cause; Y93.9 Activity, unspecified; Y99.9 Unspecified external cause status; F17.200 Nicotine dependence, unspecified, uncomplicated; Z79.82 Long term (current) use of aspirin; Z79.899 Other long term (current) drug therapy; Z88.8 Allergy status to other drugs, medicaments and biological substances

== ENCOUNTER 2020-08-07 14:27 | Outpatient (RCR) | payer MEDICAID ==
[~2020-08-07 14:27] MED LIST changes: +METH1TAB40 PO
== END 2020-08-08 ==
LOC: M OUTALCOH 14:27
PROVIDERS: ATTEND Psychiatry & Neurology Addiction Medicine
DX: F15.20 Other stimulant dependence, uncomplicated (principal); F12.20 Cannabis dependence, uncomplicated; F10.10 Alcohol abuse, uncomplicated; F17.200 Nicotine dependence, unspecified, uncomplicated

== ENCOUNTER 2020-09-06 14:32 | Outpatient (RCR) | payer MEDICAID ==
[~2020-09-06 14:32] MED LIST changes: -ESCI20TA PO; +ESCI20TA16 PO
== END 2020-09-08 ==
LOC: M OUTALCOH 14:32
PROVIDERS: ATTEND Psychiatry & Neurology Psychiatry
DX: F15.20 Other stimulant dependence, uncomplicated (principal); F12.20 Cannabis dependence, uncomplicated; F10.10 Alcohol abuse, uncomplicated; F17.200 Nicotine dependence, unspecified, uncomplicated

== ENCOUNTER 2020-10-04 11:09 | Outpatient (RCR) | payer MEDICAID ==
[~2020-10-04 11:09] MED LIST changes: +HYDR-3490; -HYDR25TAB; +METH-1164 PO; -METH1TAB40 PO
== END 2020-10-06 ==
LOC: M OUTALCOH 11:09
PROVIDERS: ATTEND Psychiatry & Neurology Addiction Medicine
DX: F15.20 Other stimulant dependence, uncomplicated (principal); F12.20 Cannabis dependence, uncomplicated; F10.10 Alcohol abuse, uncomplicated; F17.200 Nicotine dependence, unspecified, uncomplicated

== ENCOUNTER → 2020-11-01 | Outpatient (REF) | payer OTHER | LOC: M SFHCADAM 12:14 | PROVIDERS: ATTEND Physician Assistant | DX: M25.50 Pain in unspecified joint (principal); Z53.9 Procedure and treatment not carried out, unspecified reason ==

== ENCOUNTER → 2020-11-04 | Outpatient (REF) | payer OTHER ==
[2020-11-04 18:55] LABS: BLOOD UREA NITROGEN 23 MG/DL (7-18); CALCIUM LEVEL 9.2 MG/DL (8.5-10.1); CARBON DIOXIDE LEVEL 33 MEQ/L (21-32); CHLORIDE LEVEL 101 MEQ/L (98-107); CREATININE FOR GFR 0.99 MG/DL (0.55-1.30); GLOMERULAR FILTRATION RATE > 60.0 (>51); GLUCOSE, FASTING 61 MG/DL (70-100); POTASSIUM SERUM 3.1 MEQ/L (3.5-5.1); RHEUMATOID FACTOR QUANT < 10.0 IU/ML (<15.0); SODIUM LEVEL 139 MEQ/L (136-145)
[2020-11-06 21:09] LABS: ANA (HEP2) Negative (.); Lyme Disease IgG/IgM Antibodie <0.91 ISR (0.00-0.90); Lyme Disease IgM Ab Quantitati <0.80 index (0.00-0.79)
== END ==
LOC: M SFHCADAM 15:40
PROVIDERS: ATTEND Physician Assistant
DX: M25.50 Pain in unspecified joint (principal)

== ENCOUNTER → 2020-11-06 | Outpatient (RCR) | payer MEDICAID | LOC: M OUTALCOH 10-07 16:00 | PROVIDERS: ATTEND Psychiatry & Neurology Addiction Medicine | DX: F15.20 Other stimulant dependence, uncomplicated (principal); F12.20 Cannabis dependence, uncomplicated; F10.10 Alcohol abuse, uncomplicated; F17.200 Nicotine dependence, unspecified, uncomplicated ==

== ENCOUNTER → 2020-11-20 | Outpatient (REF) | payer OTHER ==
[2020-11-20 12:41] LABS: HEMATOCRIT 40.8 % (36.0-47.0); HEMOGLOBIN 13.6 g/dl (12.0-15.5); MEAN CORPUSCULAR HEMOGLOBIN 29.6 pg (27.0-33.0); MEAN CORPUSCULAR HGB CONC 33.3 g/dl (32.0-36.5); MEAN CORPUSCULAR VOLUME 88.7 fl (80.0-96.0); PLATELET COUNT, AUTOMATED 191 10^3/uL (150-450); WHITE BLOOD COUNT 8.4 10^3/uL (4.0-10.0)
[2020-11-20 12:50] LABS: INR 0.91; PARTIAL THROMBOPLASTIN TIME 29.7 SECONDS (24.2-38.5); PROTHROMBIN TIME 12.5 SECONDS (12.5-14.3)
[2020-11-20 13:21] LABS: ALBUMIN 4.3 GM/DL (3.2-5.2); ALT/SGPT 16 U/L (12-78); BILIRUBIN,TOTAL 0.4 MG/DL (0.2-1.0); BLOOD UREA NITROGEN 33 MG/DL (7-18); CALCIUM LEVEL 10.5 MG/DL (8.5-10.1); CARBON DIOXIDE LEVEL 27 MEQ/L (21-32); CHLORIDE LEVEL 107 MEQ/L (98-107); CREATININE FOR GFR 0.96 MG/DL (0.55-1.30); GLOMERULAR FILTRATION RATE > 60.0 (>51); GLUCOSE, FASTING 86 MG/DL (70-100); POTASSIUM SERUM 3.9 MEQ/L (3.5-5.1); SODIUM LEVEL 141 MEQ/L (136-145); TOTAL PROTEIN 7.1 GM/DL (6.4-8.2)
== END ==
LOC: M SFHCADAM 11:22
PROVIDERS: ATTEND Physician Assistant
DX: Z01.818 Encounter for other preprocedural examination (principal)

== ENCOUNTER 2020-12-02 14:00 | Outpatient (RCR) | payer MEDICAID | END 2020-12-06 | LOC: M OUTALCOH 14:00 | PROVIDERS: ATTEND Psychiatry & Neurology Psychiatry | DX: F15.20 Other stimulant dependence, uncomplicated (principal); F12.20 Cannabis dependence, uncomplicated; F10.10 Alcohol abuse, uncomplicated; F17.200 Nicotine dependence, unspecified, uncomplicated ==

== ENCOUNTER 2021-01-01 08:00 | Outpatient (RCR) | payer MEDICAID | END 2021-01-06 | LOC: M OUTALCOH 08:00 | PROVIDERS: ATTEND Psychiatry & Neurology Psychiatry | DX: F15.20 Other stimulant dependence, uncomplicated (principal); F12.20 Cannabis dependence, uncomplicated; F10.10 Alcohol abuse, uncomplicated; F17.200 Nicotine dependence, unspecified, uncomplicated ==

== ENCOUNTER → 2021-02-05 | Outpatient (REF) | payer OTHER ==
[2021-02-05 17:28] LABS: BASO # 0.1 10^3/uL (0.0-0.2); BASO % 0.7 % (0.0-1.0); EOS # 0.2 10^3/uL (0.0-0.5); EOS % 1.4 % (0.0-3.0); HEMATOCRIT 45.2 % (36.0-47.0); LYMPH # 2.5 10^3/uL (1.5-5.0); LYMPH % 22.3 % (24.0-44.0); MEAN CORPUSCULAR HEMOGLOBIN 29.8 pg (27.0-33.0); MEAN CORPUSCULAR HGB CONC 33.2 g/dl (32.0-36.5); MEAN CORPUSCULAR VOLUME 89.9 fl (80.0-96.0); MONO # 0.7 10^3/uL (0.0-0.8); MONO % 6.2 % (2.0-8.0); NEUTROPHILS # 7.6 10^3/uL (1.5-8.5); NEUTROPHILS % 68.8 % (36.0-66.0); PLATELET COUNT, AUTOMATED 241 10^3/uL (150-450); RED BLOOD COUNT 5.03 10^6/uL (4.00-5.40); WHITE BLOOD COUNT 11.1 10^3/uL (4.0-10.0)
[2021-02-05 18:01] LABS: ALBUMIN 4.2 GM/DL (3.2-5.2); ALT/SGPT 27 U/L (12-78); BILIRUBIN,TOTAL 0.4 MG/DL (0.2-1.0); BLOOD UREA NITROGEN 22 MG/DL (7-18); CALCIUM LEVEL 9.8 MG/DL (8.5-10.1); CARBON DIOXIDE LEVEL 30 MEQ/L (21-32); CHLORIDE LEVEL 102 MEQ/L (98-107); CREATININE FOR GFR 0.97 MG/DL (0.55-1.30); FERRITIN 47 NG/ML (8-252); FREE T4 1.31 NG/DL (0.76-1.46); GLOMERULAR FILTRATION RATE > 60.0 (>51); GLUCOSE, FASTING 78 MG/DL (70-100); IRON (FE) 65 UG/DL (50-170); PERCENT SATURATION 19.6 % (13.2-45.0); POTASSIUM SERUM 4.1 MEQ/L (3.5-5.1); SODIUM LEVEL 139 MEQ/L (136-145); TOTAL IRON BINDING CAPACITY 331 UG/DL (250-450); TOTAL PROTEIN 7.7 GM/DL (6.4-8.2)
[2021-02-05 18:03] LABS: TOTAL 25(OH) VITAMIN D 34.8 NG/ML (30.0-100.0); VITAMIN B12 LEVEL 566 PG/ML
[2021-02-05 18:18] LABS: HEMOGLOBIN A1c 5.4 %
== END ==
LOC: M SFHCADAM 12:16
PROVIDERS: ATTEND Physician Assistant
DX: R53.82 Chronic fatigue, unspecified (principal); E55.9 Vitamin D deficiency, unspecified; E03.9 Hypothyroidism, unspecified; R31.29 Other microscopic hematuria; Z13.1 Encounter for screening for diabetes mellitus

== ENCOUNTER → 2021-02-13 | Outpatient (CLI) | payer OTHER ==
--- NOTE | 2021-02-13 15:54 | REP ---
INDICATION: VIRAL RESPIRATORY TRACT INFECTION COMPARISON: 11/10/2019 TECHNIQUE: PA and lateral. FINDINGS: The mediastinum and cardiac silhouette are normal. The lung [place] are clear and without acute consolidation, effusion, or pneumothorax. The skeletal structures are intact and normal. IMPRESSION: No acute cardiopulmonary process. <Electronically signed by Chuy Parry > 02/13/21 [id number]
== END ==
LOC: M ADAMS 15:39
PROVIDERS: ATTEND Physician Assistant
DX: J06.9 Acute upper respiratory infection, unspecified (principal)

== ENCOUNTER → 2021-04-04 | Outpatient (REF) | payer OTHER ==
[2021-04-04 12:43] LABS: BASO # 0.1 10^3/uL (0.0-0.2); BASO % 0.9 % (0.0-1.0); EOS # 0.2 10^3/uL (0.0-0.5); EOS % 2.6 % (0.0-3.0); HEMATOCRIT 42.3 % (36.0-47.0); HEMOGLOBIN 14.2 g/dl (12.0-15.5); LYMPH % 24.4 % (24.0-44.0); MEAN CORPUSCULAR HEMOGLOBIN 29.7 pg (27.0-33.0); MEAN CORPUSCULAR HGB CONC 33.6 g/dl (32.0-36.5); MEAN CORPUSCULAR VOLUME 88.5 fl (80.0-96.0); MONO # 0.6 10^3/uL (0.0-0.8); MONO % 7.1 % (2.0-8.0); NEUTROPHILS # 5.3 10^3/uL (1.5-8.5); NEUTROPHILS % 64.6 % (36.0-66.0); PLATELET COUNT, AUTOMATED 211 10^3/uL (150-450); RED BLOOD COUNT 4.78 10^6/uL (4.00-5.40); WHITE BLOOD COUNT 8.2 10^3/uL (4.0-10.0)
[2021-04-04 13:15] LABS: BLOOD UREA NITROGEN 24 MG/DL (7-18); CALCIUM LEVEL 9.8 MG/DL (8.5-10.1); CARBON DIOXIDE LEVEL 28 MEQ/L (21-32); CHLORIDE LEVEL 108 MEQ/L (98-107); CREATININE FOR GFR 0.99 MG/DL (0.55-1.30); GLOMERULAR FILTRATION RATE > 60.0 (>51); GLUCOSE, FASTING 98 MG/DL (70-100); POTASSIUM SERUM 3.6 MEQ/L (3.5-5.1); SODIUM LEVEL 141 MEQ/L (136-145)
[2021-04-04 13:27] LABS: ERYTHROCYTE SEDIMENTATION RATE 7 mm/hr (0-30)
[2021-04-05 17:06] LABS: Lyme Disease IgG/IgM Antibodie <0.91 ISR (0.00-0.90); Lyme Disease IgM Ab Quantitati <0.80 index (0.00-0.79)
== END ==
LOC: M SFHCADAM 10:22
PROVIDERS: ATTEND Physician Assistant
DX: S76.012A Strain of muscle, fascia and tendon of left hip, initial encounter (principal); M25.559 Pain in unspecified hip

== ENCOUNTER → 2021-04-04 | Outpatient (CLI) | payer OTHER ==
--- NOTE | 2021-04-04 10:56 | REP ---
INDICATION: LEFT HIP/GROIN PAIN COMPARISON: None. TECHNIQUE: AP and frog-lateral views of the left hip FINDINGS: Degenerative changes include increased sclerosis along the acetabular roof with marginal spurring and minimal joint space narrowing. No acute fracture or dislocation. No periarticular calcifications. IMPRESSION: Mild arthritic degenerative changes. <Electronically signed by Chuy Parry > 04/04/21 [id number]
== END ==
LOC: M ADAMS 10:33
PROVIDERS: ATTEND Physician Assistant
DX: M25.559 Pain in unspecified hip (principal); M17.12 Unilateral primary osteoarthritis, left knee

== ENCOUNTER → 2021-04-22 | Outpatient (REF) | payer OTHER ==
[2021-04-22 17:48] LABS: CALCIUM LEVEL 9.7 MG/DL (8.5-10.1); CREATININE FOR GFR 1.18 MG/DL (0.55-1.30); GLOMERULAR FILTRATION RATE 50.6 (>51); POTASSIUM SERUM 3.6 MEQ/L (3.5-5.1)
== END ==
LOC: M SFHCADAM 14:09
PROVIDERS: ATTEND Physician Assistant
DX: Z01.818 Encounter for other preprocedural examination (principal); M67.912 Unspecified disorder of synovium and tendon, left shoulder

== ENCOUNTER → 2021-07-08 | Outpatient (CLI) | payer OTHER | LOC: M RAD 14:42 | PROVIDERS: ATTEND Physician Assistant | DX: R10.32 Left lower quadrant pain (principal) ==

== ENCOUNTER → 2021-11-19 | Outpatient (CLI) | payer OTHER ==
[~2021-11-19] MED LIST changes: +PROHANCE 279.3MG/ML 5ML VIAL ONE
== END ==
LOC: M PLAIMG 07:39
PROVIDERS: ATTEND Physician Assistant
DX: R42 Dizziness and giddiness (principal)
CPT/HCPCS: 70553; A9576

== ENCOUNTER → 2021-12-04 | Outpatient (REF) | payer OTHER ==
[~2021-12-04] MED LIST changes: -PROHANCE 279.3MG/ML 5ML VIAL ONE
[2021-12-04 17:11] LABS: BLOOD UREA NITROGEN 16 MG/DL (7-18); CALCIUM LEVEL 9.8 MG/DL (8.5-10.1); CARBON DIOXIDE LEVEL 29 MEQ/L (21-32); CHLORIDE LEVEL 106 MEQ/L (98-107); CREATININE FOR GFR 0.92 MG/DL (0.55-1.30); GLOMERULAR FILTRATION RATE > 60.0 (>51); GLUCOSE, FASTING 88 MG/DL (70-100); POTASSIUM SERUM 3.6 MEQ/L (3.5-5.1); SODIUM LEVEL 140 MEQ/L (136-145); THYROID STIMULATING HORMONE 0.693 uIU/ML (0.358-3.740)
== END ==
LOC: M SFHCADAM 11:41
PROVIDERS: ATTEND Physician Assistant
DX: R10.32 Left lower quadrant pain (principal); K40.90 Unilateral inguinal hernia, without obstruction or gangrene, not specified as recurrent; E03.9 Hypothyroidism, unspecified

== ENCOUNTER → 2021-12-17 | Outpatient (CLI) | payer OTHER ==
[~2021-12-17] MED LIST changes: +GASTROGRAFIN SOLUTION 30ML (Q9963) As Ordered ONE; +ISOVUE-370 76% 100ML VIAL As Ordered ONE
== END ==
LOC: M RAD 14:02
PROVIDERS: ATTEND Physician Assistant
DX: N28.1 Cyst of kidney, acquired (principal); K40.90 Unilateral inguinal hernia, without obstruction or gangrene, not specified as recurrent; R10.32 Left lower quadrant pain
CPT/HCPCS: 74178; Q9963; Q9967

== ENCOUNTER → 2022-04-30 | Outpatient (REF) | payer OTHER ==
[~2022-04-30] MED LIST changes: -GASTROGRAFIN SOLUTION 30ML (Q9963) As Ordered ONE; -ISOVUE-370 76% 100ML VIAL As Ordered ONE
[2022-04-30 14:51] LABS: RSV AMPLIFICATION NEGATIVE (NEGATIVE)
== END ==
LOC: M LAB REF 12:06
PROVIDERS: ATTEND Physician Assistant
DX: B34.9 Viral infection, unspecified (principal)

== ENCOUNTER → 2022-05-07 | Outpatient (REF) | payer OTHER ==
[2022-05-08 15:29] LABS: APPEARANCE, URINE MANUAL CLEAR (CLEAR); COLOR, URINE MANUAL LT YELLOW (YELLOW)
[2022-05-08 15:31] LABS: BILIRUBIN, URINE MANUAL NEGATIVE (NEGATIVE); BLOOD URINE MANUAL NEGATIVE (NEGATIVE); GLUCOSE, URINE (UA) MANUAL NEGATIVE (NEGATIVE); KETONE, URINE MANUAL NEGATIVE (NEGATIVE); LEUKOCYTE ESTERASE, URINE MAN NEGATIVE (NEGATIVE); NITRITE, URINE MANUAL NEGATIVE (NEGATIVE); PH,URINE MAN 6.5 UNITS (5.0 - 7.0); PROTEIN, URINE MANUAL NEGATIVE (NEGATIVE); SPECIFIC GRAVITY,URINE MANUAL 1.005 (1.002-1.035); UROBILINOGEN, URINE MANUAL NORMAL (NORMAL)
== END ==
LOC: M SFHCADAM 13:28
PROVIDERS: ATTEND Physician Assistant
DX: R82.90 Unspecified abnormal findings in urine (principal)

== ENCOUNTER → 2022-05-08 | Outpatient (CLI) | payer OTHER ==
[2022-05-08 10:23] LABS: BASO % 0.5 % (0.0-1.0); EOS # 0.3 10^3/uL (0.0-0.5); EOS % 3.5 % (0.0-3.0); HEMATOCRIT 39.2 % (36.0-47.0); HEMOGLOBIN 13.2 g/dl (12.0-15.5); LYMPH # 1.8 10^3/uL (1.5-5.0); LYMPH % 23.6 % (24.0-44.0); MEAN CORPUSCULAR HEMOGLOBIN 30.6 pg (27.0-33.0); MEAN CORPUSCULAR HGB CONC 33.7 g/dl (32.0-36.5); MEAN CORPUSCULAR VOLUME 90.7 fl (80.0-96.0); MONO # 0.5 10^3/uL (0.0-0.8); MONO % 6.9 % (2.0-8.0); NEUTROPHILS # 4.9 10^3/uL (1.5-8.5); NEUTROPHILS % 65.1 % (36.0-66.0); PLATELET COUNT, AUTOMATED 190 10^3/uL (150-450); RED BLOOD COUNT 4.32 10^6/uL (4.00-5.40); WHITE BLOOD COUNT 7.5 10^3/uL (4.0-10.0)
[2022-05-08 10:35] LABS: INR 0.87; PROTHROMBIN TIME 12.2 SECONDS (12.7-14.5)
[2022-05-08 11:02] LABS: ALBUMIN 3.7 GM/DL (3.2-5.2); ALT/SGPT 19 U/L (12-78); BILIRUBIN,TOTAL 0.6 MG/DL (0.2-1.0); BLOOD UREA NITROGEN 21 MG/DL (7-18); CALCIUM LEVEL 9.2 MG/DL (8.5-10.1); CARBON DIOXIDE LEVEL 27 MEQ/L (21-32); CHLORIDE LEVEL 110 MEQ/L (98-107); CHOLESTEROL LEVEL 244 MG/DL (<200); CHOLESTEROL RISK RATIO 3.753 (<5); CREATININE FOR GFR 0.99 MG/DL (0.55-1.30); GLOMERULAR FILTRATION RATE > 60.0 (>51); GLUCOSE, FASTING 87 MG/DL (70-100); HDL CHOLESTEROL 65 MG/DL (>40); HEMOGLOBIN A1c 5.3 %; LDL CHOLESTEROL 158 MG/DL (<100); NON-HDL-C 179 MG/DL; SODIUM LEVEL 140 MEQ/L (136-145); TOTAL PROTEIN 6.8 GM/DL (6.4-8.2); TRIGLYCERIDES LEVEL 103 MG/DL (<150)
[2022-05-08 12:25] LABS: HEPATITIS B SURFACE ANTIGEN NEGATIVE (NEGATIVE)
[2022-05-08 12:52] LABS: HEPATITIS B CORE ANTIBODY IGM NEGATIVE (NEGATIVE); HEPATITIS C VIRUS ABY INDEX < 0.0 INDEX (<0.8)
[2022-05-08 13:40] LABS: VITAMIN B12 LEVEL 603 PG/ML (247-911)
[2022-05-09 10:08] LABS: FOLATE 19.2 ng/mL (>3.0)
== END ==
LOC: M LAB 09:21
PROVIDERS: ATTEND Physician Assistant
DX: R82.90 Unspecified abnormal findings in urine (principal); K70.30 Alcoholic cirrhosis of liver without ascites; F17.210 Nicotine dependence, cigarettes, uncomplicated; R10.32 Left lower quadrant pain; Z13.1 Encounter for screening for diabetes mellitus

== ENCOUNTER 2022-06-04 09:21 | Outpatient (RCR) | payer OTHER | END 2022-06-08 | LOC: M PT 09:21 | PROVIDERS: ATTEND Surgery | DX: R10.32 Left lower quadrant pain (principal) ==

== ENCOUNTER → 2022-06-19 | Outpatient (CLI) | payer OTHER | LOC: M RAD 07:25 | PROVIDERS: ATTEND Physician Assistant | DX: K70.30 Alcoholic cirrhosis of liver without ascites (principal); Z90.49 Acquired absence of other specified parts of digestive tract ==

== ENCOUNTER → 2022-10-19 | Outpatient (REF) | payer OTHER ==
[2022-10-19 15:28] LABS: BASO # 0.1 10^3/uL (0.0-0.2); BASO % 0.8 % (0.0-1.0); EOS # 0.2 10^3/uL (0.0-0.5); EOS % 2.8 % (0.0-3.0); HEMATOCRIT 39.6 % (36.0-47.0); HEMOGLOBIN 12.8 g/dl (12.0-15.5); LYMPH % 28.8 % (24.0-44.0); MEAN CORPUSCULAR HEMOGLOBIN 29.6 pg (27.0-33.0); MEAN CORPUSCULAR HGB CONC 32.3 g/dl (32.0-36.5); MEAN CORPUSCULAR VOLUME 91.5 fl (80.0-96.0); MONO # 0.5 10^3/uL (0.0-0.8); MONO % 7.2 % (2.0-8.0); NEUTROPHILS # 4.2 10^3/uL (1.5-8.5); NEUTROPHILS % 60.1 % (36.0-66.0); PLATELET COUNT, AUTOMATED 185 10^3/uL (150-450); RED BLOOD COUNT 4.33 10^6/uL (4.00-5.40); WHITE BLOOD COUNT 7.1 10^3/uL (4.0-10.0)
[2022-10-19 15:52] LABS: ALBUMIN 3.7 G/DL (3.2-5.2); ALKALINE PHOSPHATASE 63 U/L (46-116); ALT/SGPT 13 U/L (7.0-40); AST/SGOT 16 U/L (<34); BILIRUBIN,TOTAL 0.4 MG/DL (0.3-1.2); BLOOD UREA NITROGEN 17 MG/DL (9-23); CALCIUM LEVEL 9.2 MG/DL (8.5-10.1); CARBON DIOXIDE LEVEL 28 MMOL/L (20-31); CHLORIDE LEVEL 110 MMOL/L (98-107); CREATININE FOR GFR 0.98 MG/DL (0.55-1.30); GLOMERULAR FILTRATION RATE > 60.0 (>51); GLUCOSE, FASTING 77 MG/DL (60-100); POTASSIUM SERUM 4.4 MMOL/L (3.5-5.1); SODIUM LEVEL 141 MMOL/L (136-145); TOTAL PROTEIN 6.2 G/DL (5.7-8.2)
== END ==
LOC: M SFHCADAM 11:28
PROVIDERS: ATTEND Physician Assistant
DX: R30.0 Dysuria (principal); R10.9 Unspecified abdominal pain

== ENCOUNTER → 2022-10-20 | Outpatient (CLI) | payer OTHER ==
[~2022-10-20] MED LIST changes: +GASTROGRAFIN SOLUTION 30ML As Ordered ONE; +ISOVUE-370 76% 100ML VIAL As Ordered ONE
== END ==
LOC: M RAD 15:41
PROVIDERS: ATTEND Physician Assistant
DX: R10.9 Unspecified abdominal pain (principal); K76.0 Fatty (change of) liver, not elsewhere classified; Z90.49 Acquired absence of other specified parts of digestive tract; N28.1 Cyst of kidney, acquired; M85.80 Other specified disorders of bone density and structure, unspecified site; I25.10 Atherosclerotic heart disease of native coronary artery without angina pectoris

== ENCOUNTER → 2022-11-19 | Outpatient (CLI) | payer MEDICAID ==
[~2022-11-19] MED LIST changes: -GASTROGRAFIN SOLUTION 30ML As Ordered ONE; -ISOVUE-370 76% 100ML VIAL As Ordered ONE
== END ==
LOC: M OUTALCOH 07:51
PROVIDERS: ATTEND Psychiatry & Neurology Psychiatry
DX: Z13.39 Encounter for screening examination for other mental health and behavioral disorders (principal)

== ENCOUNTER → 2022-11-27 | Outpatient (REF) | payer MEDICAID, OTHER ==
[2022-11-27 13:47] LABS: APPEARANCE, URINE CLEAR (CLEAR); BACTERIA, URINE AUTO NEGATIVE (NEGATIVE); BILIRUBIN, URINE AUTO NEGATIVE (NEGATIVE); BLOOD, URINE BLOOD 1+ (NEGATIVE); COLOR, URINE YELLOW (YELLOW); GLUCOSE, URINE (UA) AUTO NEGATIVE (NEGATIVE); KETONE, URINE AUTO NEGATIVE (NEGATIVE); LEUKOCYTE ESTERASE, URINE AUTO NEGATIVE (NEGATIVE); MUCUS, URINE SMALL (NEGATIVE); NITRITE, URINE AUTO NEGATIVE (NEGATIVE); PROTEIN, URINE AUTO NEGATIVE (NEGATIVE); RBC, URINE AUTO 6 /HPF (0-3); SPECIFIC GRAVITY URINE AUTO 1.017 (1.002-1.035); SQUAMOUS EPITHELIAL CELL UR AU 0 /HPF (0-6); UROBILINOGEN, URINE AUTO 0.2 mg/dL (0.0-2.0); WBC, URINE AUTO 1 /HPF (0-3)
== END ==
LOC: M LAB REF 13:03
PROVIDERS: ATTEND Physician Assistant
DX: R31.21 Asymptomatic microscopic hematuria (principal)

== ENCOUNTER → 2022-12-17 | Outpatient (CLI) | payer OTHER | LOC: M RAD 14:29 | PROVIDERS: ATTEND Physician Assistant | DX: Z12.2 Encounter for screening for malignant neoplasm of respiratory organs (principal); F17.210 Nicotine dependence, cigarettes, uncomplicated; R91.1 Solitary pulmonary nodule ==

== ENCOUNTER → 2022-12-18 | Outpatient (REF) | payer OTHER | LOC: M SMT 17:10 | PROVIDERS: ATTEND Urology | DX: R31.0 Gross hematuria (principal) ==

== ENCOUNTER → 2023-01-26 | Outpatient (REF) | payer OTHER ==
[2023-01-26 14:13] LABS: BASO % 0.5 % (0.0-1.0); EOS # 0.1 10^3/uL (0.0-0.5); EOS % 1.7 % (0.0-3.0); HEMATOCRIT 41.4 % (36.0-47.0); HEMOGLOBIN 13.7 g/dl (12.0-15.5); LYMPH # 1.6 10^3/uL (1.5-5.0); LYMPH % 21.8 % (24.0-44.0); MEAN CORPUSCULAR HEMOGLOBIN 30.3 pg (27.0-33.0); MEAN CORPUSCULAR HGB CONC 33.1 g/dl (32.0-36.5); MEAN CORPUSCULAR VOLUME 91.6 fl (80.0-96.0); MONO # 0.6 10^3/uL (0.0-0.8); MONO % 7.6 % (2.0-8.0); NEUTROPHILS # 5.1 10^3/uL (1.5-8.5); NEUTROPHILS % 68.1 % (36.0-66.0); PLATELET COUNT, AUTOMATED 174 10^3/uL (150-450); RED BLOOD COUNT 4.52 10^6/uL (4.00-5.40); WHITE BLOOD COUNT 7.5 10^3/uL (4.0-10.0)
[2023-01-26 14:14] LABS: AMORPHOUS SEDIMENT MODERATE (NEGATIVE); APPEARANCE, URINE CLOUDY (CLEAR); BACTERIA, URINE AUTO NEGATIVE (NEGATIVE); BILIRUBIN, URINE AUTO NEGATIVE (NEGATIVE); BLOOD, URINE BLOOD 1+ (NEGATIVE); COLOR, URINE YELLOW (YELLOW); GLUCOSE, URINE (UA) AUTO NEGATIVE (NEGATIVE); KETONE, URINE AUTO NEGATIVE (NEGATIVE); LEUKOCYTE ESTERASE, URINE AUTO NEGATIVE (NEGATIVE); NITRITE, URINE AUTO NEGATIVE (NEGATIVE); PROTEIN, URINE AUTO NEGATIVE (NEGATIVE); RBC, URINE AUTO 5 /HPF (0-3); SPECIFIC GRAVITY URINE AUTO 1.014 (1.002-1.035); SQUAMOUS EPITHELIAL CELL UR AU 0 /HPF (0-6); UROBILINOGEN, URINE AUTO 0.2 mg/dL (0.0-2.0); WBC, URINE AUTO 1 /HPF (0-3)
[2023-01-26 14:47] LABS: ALBUMIN 3.9 G/DL (3.2-5.2); BILIRUBIN,TOTAL 0.4 MG/DL (0.3-1.2); CALCIUM LEVEL 9.6 MG/DL (8.5-10.1); CREATININE FOR GFR 1.21 MG/DL (0.55-1.30); FREE T4 1.24 NG/DL (0.89-1.76); POTASSIUM SERUM 4.4 MMOL/L (3.5-5.1); THYROID STIMULATING HORMONE 1.548 uIU/ML (0.55-4.78); TOTAL PROTEIN 6.7 G/DL (5.7-8.2)
== END ==
LOC: M SFHCADAM 09:31
PROVIDERS: ATTEND Physician Assistant
DX: R19.7 Diarrhea, unspecified (principal); R11.2 Nausea with vomiting, unspecified; R82.90 Unspecified abnormal findings in urine

== ENCOUNTER → 2023-02-11 | Outpatient (CLI) | payer OTHER | LOC: M WHC 12:35 | PROVIDERS: ATTEND Physician Assistant | DX: Z12.31 Encounter for screening mammogram for malignant neoplasm of breast (principal) ==